=== PATIENT | male | born 1955 | race Hispanic/Latino ===

== ENCOUNTER 2019-05-29 02:23 | Inpatient (IN) | payer MEDICARE, SELFPAY ==
[2019-05-29] VITALS (12 sets, daily range): BP systolic 124–227; BP diastolic 50–101; PULSE 59–90; RESP 16–21; TEMP 36.8–37.4; O2SAT 95–100; BMI 25.3
--- NOTE | 2019-05-29 | ECHO_ITS ---
Patient Info Name: Clement Umanzor Age: 63 years : 1955 Gender: Male Ht: 68 in Wt: 167 lbs BSA: 1.92 m2 HR: 56 bpm BP: 134 / 73 mmHg Heart Rhythm: Bradycardia Technical Quality: Good Exam Date: 05/29/2019 2:16 PM Exam Location: [facility]monary Patient Status: Inpatient Admit Date: 05/29/2019 Staff Ordering Physician: Osman Odom PA-C Engine Lathe Tender: Jeremi Guzman RDCS Attending Provider: Osman Odom PA-C Referring Physician: Lei BURRELL; Exam Type: CA echo doppler color flow Study Info Indications 435.9 - TIA Complete two-dimensional, color flow and Doppler transthoracic echocardiogram is performed. Strain analysis performed. History/Risk Factors CVA x4; HTN, DM2. Summary 1. Left ventricular systolic function is mildly reduced, estimated at 40-45%. 2. The posterolateral segment is hypodynamic. 3. Otherwise normal exam. no difference compared with Sept of 2018. Left Ventricle Left ventricular chamber dimension is normal. Left ventricular systolic function is mildly reduced, estimated at 40-45%. The left ventricular diastolic function is normal. The posterolateral segment is hypodynamic. Right Ventricle Right ventricular chamber dimension is normal. Left Atria Left atrial chamber dimension is normal. Right Atria Right atrial chamber dimension is normal. Aortic Valve The aortic valve is trileaflet. Pulmonic Valve The pulmonic valve is normal. Mitral Valve The mitral valve has normal leaflets. Tricuspid Valve The tricuspid valve leaflets are normal. Pericardium/Pleural The pericardium appears normal. Aorta The aortic root size at the sinus of Valsalva is normal. Left Ventricular Outflow Tract Name Value Normal LVOT 2D LVOT Diameter 2.2 cm LVOT Doppler LVOT Peak Gradient 5 mmHg LVOT Mean Gradient 2 mmHg LVOT VTI 22 cm LVOT VTI/AV VTI Ratio 0.8 LVOT Stroke Volume 81 ml LVOT CO 4.9 l/min LVOT CI 2.5 l/min/m2 Mitral Valve Name Value Normal MV Doppler MV Decel [place] 282 cm/s2 MV PHT 66 ms MV Area (PHT) 3.3 cm2 4.0-5.0 MV Diastolic Function MV E Peak Velocity 65 cm/s MV A Peak Velocity 85 cm/s MV E/A 0.8 MV Decel Time 229 ms MV Annular TDI MV E/e' (Septal) 15.6 <=8.0
--- NOTE | ~2019-05-29 | CT_ITS ---
EXAMINATION: CT brain wo con EXAM DATE: 05/29/2019 02:54 INDICATION: Slurred speech. History of stroke. TECHNIQUE: Spiral CT of the head was performed without contrast. Axial, coronal and sagittal images were reviewed. The dose-length product (DLP) for this examination was 605.33 mGy-cm. The exposure w as tailored according to patient size, and iterative reconstruction (ASIR) was used as additional dos e reduction technique. Comparison is made to prior examination from 12/17/2018. FINDINGS: There is no acute intraparenchymal hemorrhage. No evidence of intraparenchymal brain mass lesion. No evidence of acute infarction. Please note that initial head CT has limited sensitivity f or small or acute infarctions. Punctate old bilateral thalamic lacunar infarctions. Small old right c erebellar infarction. Several small old right frontal lobe infarctions. Small old left frontal lobe a nd left parietal lobe infarctions. There is mild periventricular and subcortical hypodensity, nonspe cific but probably related to small vessel ischemic disease. There is moderate prominence of the nelson lci and ventricles related to cerebral atrophy. There is intracranial carotid arteriosclerosis. Th ere are no extra-axial collections. There is no mass effect or midline shift. The orbits are unrema rkable. Soft tissue is unremarkable. The visualized sinuses and mastoid air cells are well aerated. There is no interval change. IMPRESSION: 1. Small old infarctions unchanged. 2. Chronic age related findings. Reviewed, dictated and finalized at location B. [employer]
--- NOTE | ~2019-05-29 | MR_ITS ---
EXAMINATION: MR brain/brain stem wo/w con DATE: 05/29/2019 13:24 INDICATION: Transient ischemic attack. Slurred speech. TECHNIQUE: Magnetic resonance imaging (MRI) of the brain and brainstem was performed without and with 15 mm MultiHance intravenous contrast. Sequences included sagittal and axial T1-weighted FSE, axial diffusion-weighted FS EPI, axial T2*-weighted GRE, axial T2-weighted FLAIR Propeller, and axial T2-we ighted Propeller. Postcontrast sequences included axial and coronal T1-weighted FSE. Apparent diffusi on coefficient (ADC) maps were created. COMPARISON: Brain MRI 01/13/2019 FINDINGS: There is a punctate acute infarct in right thalamus. There are acute infarcts in left front oparietal region. There are old infarcts in right frontal lobe and right frontoparietal region. There is an old infarct in left parietal occipital region. There are old infarcts in left frontal and damian etal lobes. There are old infarcts in the cerebellum bilaterally. There are old lacunar infarcts in t he thalami. There is no intracranial hemorrhage or abnormal mass lesion. There are scattered areas of nonspecific increased T2-weighted signal intensity in the cerebral white matter. The ventricles are normal in size. The mastoid air cells are normal. The orbits are normal. There is mild mucosal thick ening in the paranasal sinuses. IMPRESSION: 1. Acute infarcts involving right thalamus and left frontoparietal region. 2. Multiple old infarcts in the brain. 3. Moderate nonspecific cerebral white matter disease, which likely represents chronic small vessel i schemic disease. Reviewed, dictated and finalized at location A. LUTION REP IMPRESSION: 1. Acute infarcts involving right thalamus and left frontoparietal region. 2. Multiple old infarcts in the brain. 3. Moderate nonspecific cerebral white matter disease, which likely represents chronic small vessel ischemic disease.
--- NOTE | ~2019-05-29 | US_ITS ---
EXAMINATION: US carotid duplex BI DATE: 05/29/2019 13:38 INDICATION: Cerebrovascular accident. TECHNIQUE: Grayscale, color Doppler, and pulsed Doppler images of the cervical carotid arteries were obtained. The degree of vessel stenosis is placed in one of the following categories: normal, <50%, 5 0-69%, >=70% but less than near-occlusion, near-occlusion, or total occlusion. Note that percent sten osis relative to normal distal artery lumen diameter is indirectly measured from velocity measurement s as described by Ari, et al. Radiology 2003; 229:340-346. COMPARISON: Ultrasound 01/13/2019 FINDINGS: RIGHT: The right common carotid artery (CCA) peak systolic velocity (PSV) is 96 cm/s. The right internal car otid artery (ICA) PSV is 85 cm/s. The right ICA end-diastolic velocity (EDV) is 21 cm/s. The right IC A/CCA PSV ratio is 0.9. Grayscale and color Doppler images yield an estimate of <50% diameter reducti on from plaque in the ICA. There is antegrade flow in the right vertebral artery. LEFT: The left CCA PSV is 91 cm/s. The left ICA PSV is 87 cm/s. The left ICA EDV is 28 cm/s. The left ICA/C CA PSV ratio is 1.0. Grayscale and color Doppler images yield an estimate of <50% diameter reduction from plaque in the ICA. There is antegrade flow in the left vertebral artery. IMPRESSION: 1. <50% stenosis in the right internal carotid artery. 2. <50% stenosis in the left internal carotid artery. Reviewed, dictated and finalized at location A. [employer]
--- NOTE | 2019-05-29 02:26 | ED.NEUROSD ---
HPI - Neuro Symptoms/Deficit General Chief Complaint: Suspected CVA Stated Complaint: POSS CVA Time Seen by Provider: 05/29/19 02:25 Source: patient, EMS and RN notes reviewed Mode of arrival: EMS Limitations: no limitations History of Present Illness HPI Narrative: Pt is a 63 y/o male who presents to the ED, via EMS from home, with c/o a suspected CVA. Pt has a hx of CVA and has had 4 in the past. Pt states that at 1:45 AM he was having some slurred speech. Per EMS, pt's last known normal was 1:45 AM. Pt's blood glucose was 445 at the scene. Pt states that he was at his brother's wake yesterday. Pt denies drinking EtOH. Pt states that he got home at around midnight and he states that he had trouble unzipping his pants and brushing his teeth. Pt reports urinary incontinence. Pt woke up his and told her about his sx. Pt also reports a mild headache, but denies weakness, vision changes, CP, and SOB. Onset (ago): hour(s) (1) Time: 01:45 Last Observed Normal: 01:45 Timing confirmed by: other (EMS) Location: speech On Anticoagulants: No Associated symptoms: headaches (mild) and other (urinary incontinence) Related Data Allergies Allergy/AdvReac Type Severity Reaction Status Date / Time penicillin G Allergy Mild Verified 01/13/19 08:46 Penicillins Allergy Unknown Verified 10/03/11 15:35 Review of Systems Review of Systems: All systems reviewed & are unremarkable except as noted in HPI and below Eyes: Eyes: Denies change in vision Cardiovascular: Cardiovascular: Denies chest pain Respiratory: Respiratory: Denies dyspnea Genitourinary: Genitourinary: Reports urinary incontinence Neurologic: Reports Abnormal speech present (slurred), Reports headache(s) (mild) and Denies weakness [facility] Past Medical History Medical History (Updated 05/29/19 @ 06:44 by Anastacia Sanchez MD) CVA (cerebrovascular accident) x4 HTN (hypertension) Type II diabetes mellitus Surgical History Surgical History (Updated 05/29/19 @ 02:38 by Parris Ohara) H/O elbow surgery History of spinal surgery Family History Family History (Updated 12/11/13 @ 07:13 by DOCTOR UNKNOWN) Sibling Family history of premature coronary heart disease Mother Family history of Parkinson's disease Social History Social History (Updated 05/29/19 @ 02:33 by Parris Ohara) Smoking packs per day: 0 Smoking cigarettes per day: 0.0 Years smoked: 51 Smoking pack-years: 0.00 Smoking status: Light tobacco smoker Tobacco type: cigarettes Additional smoking assessment comments: Pt states that he smokes more whenever he is stressed. Alcohol intake: never Substance use: never Gender identity (if verbalized by the patient): Male Spiritual care concerns: No Agree to blood products: Yes Exam Const: General: cooperative, no acute distress and alert Nutritional Appearance: well nourished Orientation/consciousness: patient oriented x3 Limitations: no limitations HENMT: Mouth: Yes lip normal and Yes moist mucous membranes Throat: other (throat normal) Eyes: Pupils: Equal, round and reactive pupils present EOM: EOMs intact bilaterally Resp: Effort & Inspection: normal respiratory effort Auscultation: clear to auscultation bilaterally Cardio: Rate: regular rate Rhythm: regular rhythm GI: GI Palp: Yes Soft to palpation and No Tenderness to palpation present (GI) Auscultation: normal bowel sounds Skin: General skin exam: normal color Neuro: General: moves all extremities Cranial nerves: Yes CN's II-XII intact bilaterally Cognition (Neuro): normal cognition Speech: Abnormal speech present slurred (slightly) Motor exam (neuro): 5/5 motor strength present throughout Sensory Exam: normal sensation Coordination: [id number] test normal Extrem: General: normal to inspection, full ROM and no clubbing, cyanosis or edema Psych: Mental Status: mental status grossly normal Affect: normal affect Attitude: cooperative C
[2019-05-29 02:33] LABS: Glucose Point of Care 386 (65-105)
--- NOTE | 2019-05-29 02:37 | ECG_ITS ---
Measurements Intervals [place] Rate: 86 P: 27 FL: 150 QRS: 3 QRSD: 98 T: -7 QT: 355 QTc: 426 Interpretive Statements SINUS RHYTHM POSSIBLE LEFT ATRIAL ENLARGEMENT NONSPECIFIC ST & T-WAVE ABNORMALITY- ANTEROLAT/INF LEADS BASELINE ARTIFACT- I, II, III, AVR, AVL, AVF BORDERLINE ECG Electronically Signed On 05-29-2019 7:03:11 MASTER CONTROL OPERATOR by Jose De Jesus Stark D.O.
[2019-05-29] MEDS: LABETALOL HCL INJ 100 MG/20 ML VIAL 10 MG IV PUSH (02:57)
[2019-05-29 03:07] LABS: Basophils Absolute Auto 0.1 K/mm3 (0.0-0.1); Basophils Percent Auto 0.5 % (0.2-1.2); Eosinophils Absolute Auto 0.1 K/mm3 (0-0.3); Eosinophils Percent Auto 0.9 % (0-4.4); Hematocrit 44.4 % (42.0-52.0); Hemoglobin 14.8 g/dL (14.0-18.0); Immature Granulocyte Absolute 0.02 K/mm3 (0.00-0.031); Immature Granulocyte Percent A 0.2 % (0-0.5); Lymphocytes Percent Auto 24.9 % (18.3-44.2); Mean Corpuscular HGB Conc 33.3 g/dl (32-36); Mean Corpuscular Volume 92.9 fl (80-100); Mean Platelet Volume 11.6 fl (7.4-10.4); Monocytes Absolute Auto 0.8 K/mm3 (0.1-0.6); Monocytes Percent Auto 7.2 % (2.6-8.5); Neutrophils Absolute Auto 7.7 K/mm3 (1.3-6.7); Neutrophils Percent Auto 66.3 % (45.5-73.1); Platelet Count Result 210 k/mm3 (150-375); Red Blood Count 4.78 M/mm3 (4.6-6.20); Red Cell Distribution Width 12.5 % (11.5-14.5); White Blood Count 11.7 K/mm3 (4.5-10.0)
[2019-05-29 03:15] LABS: Prothrombin Time 12.7 Seconds (11.1-14.7)
[2019-05-29 03:16] LABS: Partial Thromboplastin Time 27.7 SECONDS (22.3-36.8)
[2019-05-29 03:17] LABS: Ethanol < 10 mg/dL (<10)
[2019-05-29 03:22] LABS: Alanine Aminotransferase 15 U/L (4-50); Albumin Level 4.3 g/dL (3.5-5.1); Alkaline Phosphatase 96 U/L (38-126); Aspartate Amino Transferase 17 U/L (17-59); Bilirubin,Total 0.4 mg/dL (0.2-1.3); Blood Urea Nitrogen 15 mg/dL (9-20); Calcium 9.3 mg/dL (8.4-10.2); Carbon Dioxide 23 mmol/L (22-30); Chloride 100 mmol/L (98-107); Estimated Glomerular Filt Rate > 60; Glucose 391 mg/dL (75-110); Potassium 3.5 mmol/L (3.4-5.0); Sodium 136 mmol/L (137-145)
[2019-05-29 04:37] LABS: Add Urine Microscopic? YES; Appearance Urine Clear (Clear); Bilirubin Urine Negative (Negative); Blood Urine 1+ (Negative); Color Urine Straw (Yellow); Glucose Urine UA 3+ mg/dL (Negative); Ketones Urine 1+ mg/dL (Negative); Leukocyte Esterase Ur Negative LEU/UL (Negative); Mucus Urine Rare /lpf; Nitrate Urine Negative (Negative); Protein Urine 2+ mg/dL (Negative); RBC Urine 0-2 /hpf (0-2); Specific Grav Ur 1.025 (1.001-1.035); Squamous Epithelial Cell Urine Rare /hpf (Few); Urobilinogen Urine Negative mg/dL (<2.0); WBC Urine 0-3 /hpf
[2019-05-29 04:47] LABS: Barbiturate Screen Urine Negative (Negative); Benzodiazepines Screen Urine Negative (Negative)
[2019-05-29 04:49] LABS: Amphetamine Screen Urine Negative (Negative); Cocaine Screen Urine Negative (Negative); Methadone Screen Urine Negative (Negative); Opiate Screen Urine Negative (Negative); Phencyclidine Screen Urine Negative (Negative)
[2019-05-29 04:54] LABS: Cannabinoid Screen Urine Negative (Negative)
--- NOTE | 2019-05-29 06:00 | ADMGEN ---
This patient, Clement Umanzor, was admitted to 3 [facility] Surg Room 314-01. Patient/family oriented to hospital policies and general routines including ID bracelet, bed and alarms, visiting hours, pain management, procedures, bathroom and other care routines, personal items, smoking policy, room service/diet, and visiting hours. Valuables list has been completed. Information on how to activate the Rapid Response Team has been discussed. Patient/Family are encouraged to report perceived risks to care and to ask questions if they do not understand what they are told or what they should do.
--- NOTE | 2019-05-29 07:24 | PC.NURSE ---
Mihaela was contacted around 0625 and a voicemail was left regarding his home medications.
[2019-05-29 07:51] LABS: Glucose Point of Care 295 (65-105)
[2019-05-29 11:12] LABS: Glucose Point of Care 275 (65-105)
[2019-05-29] MEDS: INSULIN ASPART (*BKC) 100 UNITS/ML SUB-Q ×2 (11:46→17:18)
--- NOTE | 2019-05-29 12:42 | PM.IMHP ---
H&P: HPI History of Present Illness Chief complaint: slurred speech tia Narrative: Clement Umanzor is a 63 year old male with history of HTN, previous CVAs (x4 per patient), DMII who presented to the ER from home early this morning with complaints of incoordination and expressive aphasia. Patient states he was at his brother's wake yesterday until roughly midnight when he returned home. Shortly after, he was attempting to urinate when he was unable to unzip his pants with both hands. He was also experiencing difficulties expressing his words at which point he told his , whom advised him to come to the ER for further evaluation as they were concerned about a stroke. He denies any other symptoms such as arm/leg weakness, numbness/tingling, slurred speech, facial droop. He denies any recent illness, neck pain, illicit drug use, changes in medications, sick contacts, recent alcohol use. He has no other complaints and is wishing to go home. He states his symptoms have improved since admission, primarily his incoordination; he is having some slurred speech as stated above, but also noted to myself and nursing that he has trouble swallowing sometimes, but states this has been going on since his last CVA roughly 2 years ago. He denies f/c/ns, headaches, dizziness, lightheadedness, LOC, changes in v/h, sudden blindness, cp/palpitations, sob/cough, n/v/d/c, abd pain, melena, brbpr, dysuria, hematuria, cloudy urine, calf pain/swelling. Review of Systems Review of Systems: All systems reviewed & are unremarkable except as noted in HPI and below PMFSH Past Medical History Medical History (Updated 05/29/19 @ 13:14 by Osman Odom PA-C) CVA (cerebrovascular accident) x4 HTN (hypertension) Type II diabetes mellitus Surgical History Surgical History H/O elbow surgery History of spinal surgery History of tonsillectomy Family History Family History Sibling Family history of premature coronary heart disease Mother Family history of Parkinson's disease Social History Social History (Updated 05/29/19 @ 13:01 by Osman Odom PA-C) Social History: Patient lives with , Mihaela, whom he designates as his medical decision maker. He wishes to be a DNR; this was discussed in detail in terms of what this entails and patient confirms no CPR, intubation, or medication. His PCP is Dr. Bai. Smoking packs per day: 0.5 Smoking cigarettes per day: 10.0 Years smoked: 51 Smoking pack-years: 25.50 Smoking status: Light tobacco smoker Tobacco type: cigarettes Additional smoking assessment comments: Pt states that he smokes more whenever he is stressed. Alcohol intake: never Substance use: never Gender identity (if verbalized by the patient): Male Spiritual care concerns: No Agree to blood products: Yes Meds Home Medications and Allergies Home Medications Medication Instructions Recorded Confirmed Type aspirin 81 mg PO DAILY 05/29/19 05/29/19 History atorvastatin 10 mg PO DAILY 05/29/19 05/29/19 History carvedilol 12.5 mg PO BID 05/29/19 05/29/19 History hydralazine 10 mg PO BID 05/29/19 05/29/19 History insulin glargine [Lantus Solostar 20 unit SUBCUT HS 05/29/19 05/29/19 History U-100 Insulin] isosorbide mononitrate 60 mg PO DAILY 05/29/19 05/29/19 History levetiracetam 500 mg PO BID 05/29/19 05/29/19 History losartan 50 mg PO DAILY 05/29/19 05/29/19 History nifedipine 60 mg PO DAILY 05/29/19 05/29/19 History rivaroxaban [Xarelto] 20 mg PO DAILY 05/29/19 05/29/19 History sitagliptin-metformin [Janumet] 50 - 1,000 tablet PO BID 05/29/19 05/29/19 History Allergies Allergy/AdvReac Type Severity Reaction Status Date / Time penicillin G Allergy Mild Verified 01/13/19 08:46 Penicillins Allergy Unknown Verified 10/03/11 15:35 Vital Signs Vital Signs - 24 hr 05/29/19 02:26 05/29/19 02:30 0
--- NOTE | 2019-05-29 13:38 | PCPTNOTE ---
Attempted PT eval. Pt gone to MRI. Will try again at later time.
--- NOTE | 2019-05-29 14:47 | WPDANESPN ---
Anes - Prog Note Post-Op Date/Time: 05/29/19 14:47 Cardiovascular status: normal Respiratory status: normal Airway patency: baseline Mental status: baseline Post-Op hydration status: normal Vital Signs: Last Vital Signs Temp 98.9 F 05/29/19 06:00 Pulse 70 05/29/19 12:00 Resp 18 05/29/19 06:00 BP 134/73 05/29/19 06:00 Pulse Ox 98 05/29/19 06:00 Laboratory Tests 05/29/19 02:56 05/29/19 02:56 05/29/19 05/29/19 05/29/19 02:31 02:56 02:56 WBC 11.7 H RBC 4.78 Hgb 14.8 Hct 44.4 MCV 92.9 MCH 31.0 MCHC 33.3 RDW 12.5 Plt Count 210 MPV 11.6 H Immature Gran % (Auto) 0.2 Neut % (Auto) 66.3 Lymph % (Auto) 24.9 Nicholas % (Auto) 7.2 Eos % (Auto) 0.9 Baso % (Auto) 0.5 Lymph # (Auto) 2.90 Nicholas # (Auto) 0.8 H Eos # (Auto) 0.1 Baso # (Auto) 0.1 Abs Immat Gran (auto) 0.02 Absolute Neuts (auto) 7.7 H Absolute Nucleated RBC 0.0 Nucleated RBC % 0.0 PT 12.7 INR 1.0 APTT 27.7 Sodium Potassium Chloride Carbon Dioxide BUN Creatinine Estim Creat Clear Calc Estimated GFR Glucose POC Capillary Glucose 386 H Calcium Total Bilirubin AST ALT Alkaline Phosphatase Total Protein Albumin Urine Color Urine Appearance Urine pH Ur Specific [place] Urine Protein Urine Glucose (UA) Urine Ketones Ur Blood (Man) Urine Nitrate Urine Bilirubin Urine Urobilinogen Leukocyte Esterase Rfl Urine RBC Urine WBC Ur Squamous Epith Cells Urine Mucus Urine Opiates Screen Urine Methadone Screen Ur Barbiturates Screen Ur Phencyclidine Scrn Ur Amphetamine Screen U Benzodiazepines Scrn Urine Cocaine Screen U Cannabinoids Screen Ethyl Alcohol 05/29/19 05/29/19 05/29/19 02:56 02:56 04:14 WBC RBC Hgb Hct MCV MCH MCHC RDW Plt Count MPV Immature Gran % (Auto) Neut % (Auto) Lymph % (Auto) Nicholas % (Auto) Eos % (Auto) Baso % (Auto) Lymph # (Auto) Nicholas # (Auto) Eos # (Auto) Baso # (Auto) Abs Immat Gran (auto) Absolute Neuts (auto) Absolute Nucleated RBC Nucleated RBC % PT INR APTT Sodium 136 L Potassium 3.5 Chloride 100 Carbon Dioxide 23 BUN 15 Creatinine 0.70 Estim Creat Clear Calc Not Reportable Estimated GFR > 60 Glucose 391 H POC Capillary Glucose Calcium 9.3 Total Bilirubin 0.4 AST 17 ALT 15 Alkaline Phosphatase 96 Total Protein 7.0 Albumin 4.3 Urine Color Straw Urine Appearance Clear Urine pH 6.0 Ur Specific [place] 1.025 Urine Protein 2+ H Urine Glucose (UA) 3+ H Urine Ketones 1+ H Ur Blood (Man) 1+ H Urine Nitrate Negative Urine Bilirubin Negative Urine Urobilinogen Negative Leukocyte Esterase Rfl Negative Urine RBC 0-2 Urine WBC 0-3 Ur Squamous Epith Cells Rare Urine Mucus Rare Urine Opiates Screen Urine Methadone Screen Ur Barbiturates Screen Ur Phencyclidine Scrn Ur Amphetamine Screen U Benzodiazepines Scrn Urine Cocaine Screen U Cannabinoids Screen Ethyl Alcohol < 10 05/29/19 05/29/19 05/29/19 04:14 07:29 10:57 WBC RBC Hgb Hct MCV MCH MCHC RDW Plt Count MPV Immature Gran % (Auto) Neut % (Auto) Lymph % (Auto) Nicholas % (Auto) Eos % (Auto) Baso % (Auto) Lymph # (Auto) Nicholas # (Auto) Eos # (Auto) Baso # (Auto) Abs Immat Gran (auto) Absolute Neuts (auto) Absolute Nucleated RBC Nucleated RBC % PT INR APTT Sodium Potassium Chloride Carbon Dioxide BUN Creatinine Estim Creat Clear Calc Estimated GFR Glucose POC Capillary Glucose 295 H 275 H Calcium Total Bilirubin AST ALT Alkaline Phosphatase Total Protein Albumin
[2019-05-29 17:13] LABS: Glucose Point of Care 314 (65-105)
--- NOTE | 2019-05-29 17:15 | WPDNEURCNPN ---
Assessment and Plan Assessment and plan (1) Incoordination: Code(s): R27.9 - Unspecified lack of coordination Status: Acute (2) Expressive aphasia: Code(s): R47.01 - Aphasia Status: Acute (3) Type II diabetes mellitus: Code(s): E11.9 - Type 2 diabetes mellitus without complications Status: Acute (4) HTN (hypertension): Code(s): I10 - Essential (primary) hypertension Status: Acute (5) Slurred speech: Code(s): R47.81 - Slurred speech Status: Acute Additional Plan patient wanted to go home and is back to his baseline he is already on anticoagulant and anti-platelet therapy that needs to be continued he is a smoker and a told him to quit smoking because that is and added risk for having recurrent stroke I will be more than happy to follow him as an outpatient Consult date: 05/29/19 Time Seen: 16:00 HPI: Clement Umanzor is a 63 year old male was admitted because of dysarthria which has improved quite a bit and weakness which is also improved and he did remarkably well with the PT and OT and walked with a walker without much difficulty the patient has multiple risk factors and however on the other hand he is on anticoagulant along with the anti-platelet therapy he tells me that he did not take his Xarelto about a week prior to having this episode The H and P performed by the attending physician was reviewed and concurred with the patient in fullest possible DP detailed Review of Systems Constitutional: Constitutional: Reports no additional constitutional complaints Eyes: Eyes: Reports no additional eye complaints ENT: Reports system reviewed and no additional complaints, except as documented Cardiovascular: Cardiovascular: Reports no additional cardiovascular complaints Respiratory: Respiratory: Reports no additional respiratory complaints Gastrointestinal: Gastrointestinal: Reports no additional gastrointestinal complaints Genitourinary: Genitourinary: Reports no additional male genitourinary complaints Musculoskeletal: Musculoskeletal: Reports no additional musculoskeletal complaints Integumentary/Breasts: Skin/Breast: Reports system reviewed and no additional complaints, except as docu Neurologic: Reports system reviewed and no additional complaints, except as documented PMFSH Past Medical History Medical History CVA (cerebrovascular accident) x4 HTN (hypertension) Type II diabetes mellitus Surgical History Surgical History H/O elbow surgery History of spinal surgery History of tonsillectomy Family History Family History Sibling Family history of premature coronary heart disease Mother Family history of Parkinson's disease Social History Social History Social History: Patient lives with , Mihaela, whom he designates as his medical decision maker. He wishes to be a DNR; this was discussed in detail in terms of what this entails and patient confirms no CPR, intubation, or medication. His PCP is Dr. Bai. Smoking packs per day: 0.5 Smoking cigarettes per day: 10.0 Years smoked: 51 Smoking pack-years: 25.50 Smoking status: Light tobacco smoker Tobacco type: cigarettes Additional smoking assessment comments: Pt states that he smokes more whenever he is stressed. Alcohol intake: never Substance use: never Gender identity (if verbalized by the patient): Male Spiritual care concerns: No Agree to blood products: Yes Meds Home Medications and Allergies Home Medications Medication Instructions Recorded Confirmed Type aspirin 81 mg PO DAILY 05/29/19 05/29/19 History atorvastatin 10 mg PO DAILY 05/29/19 05/29/19 History carvedilol 12.5 mg PO BID 05/29/19 05/29/19 History hydralazine 10 mg PO BID 05/29/19
--- NOTE | 2019-05-29 17:19 | PM.DS ---
DS: Diagnosis Admitting Diagnosis Admitting Diagnosis: Aphasia Discharge Diagnosis (1) CVA (cerebrovascular accident): Code(s): I63.9 - Cerebral infarction, unspecified Status: Acute Assessment and Plan: MRI shows new acute infarcts of right thalamus and left frontoparietal regions. Dr. Curry has seen patient and stated his okay for discharge from Neurology standpoint. This afternoon, his symptoms have nearly resolved, particularly his speech and his incoordination. He did well with PT/OT/ST with no recommendations of therapy. Patient stated he stopped taking his Xarelto because his pharmacy had ran out . Discussed this in detail and he assured me he has a refill of Xarelto at home and we discussed him speaking with his pharmacy in the future prior to when he is due for a refill to ensure they have medication for him. Echo pending from today; 01/13/19 echo showed normal interatrial septum, saline contrast study negative for interatrial, and mild LV systolic dysfunction, ejection fraction 45 to 50%. Echo results on 05/29 showed mildly reduced EF estimated at 40-45% and posterolateral segment being hypodynamic with otherwise no difference compared with exam on 12/2018 Dr. Curry has been consulted and greatly appreciate input Will have patient follow up with Neurology in 6-8 weeks, no driving Follow up with pcp as well Will have him continue Xarelto and other medications as prescribed (2) Expressive aphasia: Code(s): R47.01 - Aphasia Status: Acute Assessment and Plan: This has nearly resolved by this afternoon. Likely due to CVA. Please see above a/p (3) Incoordination: Code(s): R27.9 - Unspecified lack of coordination Status: Acute Assessment and Plan: PT/OT have no recommendations for patient. See above a/p (4) Type II diabetes mellitus: Code(s): E11.9 - Type 2 diabetes mellitus without complications Status: Acute Assessment and Plan: BGL in 200s today During stay, correctional insulin, accuchecks, and hypoglycemia protocol Continue home medications. Follow up with PCP for further management (5) HTN (hypertension): Code(s): I10 - Essential (primary) hypertension Status: Acute Assessment and Plan: BP 130s sys this morning Resume home medications at discharge DS: Summary Hospital Course Reason for hospitalization: Acute CVAs involving right thalamus and left frontoparietal region Hospital Course: Patient is a 63 yo M with history of HTN, previous CVAs (x4 per patient), DMII who presented to the ER from home early on morning of 05/29 with complaints of incoordination and expressive aphasia. Patient states he was at his brother's wake on the day prior until roughly midnight when he returned home and was having difficulties in coordination with his hands when trying to urinate and having symptoms of slurred speech/expressive aphasia. He presented to the ER for furhter evaluation. While there, Head CT was unremarkable for acute CVA. He was to be admitted to rule out acute CVA. Please see H&P for further details. Of note, he later stated that he had ran out of his Xarelto for approximately 1 week as his pharmacy had told them they were unable to refill his script because they ran out . Presenting VS: BP 227/101, HR 90, RR 16, temp 98.6, sat 100% RA Presenting Pertinent labs: WBC 11.7, PT 12.7, INR 1.0, aPTT 27.7. UA showed 2+ protein, 3+ glucose, 1+ ketones, 1+ blood. CBC, CMP, tox screen, UA, otherwise unremarkable Micro: none Imagin/13 Echo Summary 1. Left ventricular systolic function is mildly reduced, estimated at 40-45%. 2. The posterolateral segment is hypodynamic. 3. Otherwise normal exam. no difference compared with Dec. 05/29 He
[2019-05-29] MEDS: RIVAROXABAN 20 MG TABLET PO (18:18)
== END 2019-05-29 18:20 | disposition home or self-care (01) | DRG 66 ==
LOC: ANHED 03:55 → ANH3MEDSUR 05:21
PROVIDERS: Physician Assistant; Admitting Provider Hospitalist; Emergency Provider Emergency Medicine; PCP Family Medicine; Visit Provider Family Medicine
DX: I63.50 Cerebral infarction due to unspecified occlusion or stenosis of unspecified cerebral artery (principal); R47.01 Aphasia; I10 Essential (primary) hypertension; Z86.73 Personal history of transient ischemic attack (TIA), and cerebral infarction without residual deficits; E11.9 Type 2 diabetes mellitus without complications; F17.210 Nicotine dependence, cigarettes, uncomplicated; R29.701 NIHSS score 1; R47.81 Slurred speech
CPT/HCPCS: 36415; 70450; 70553; 80053; 80307; 81001; 82948; 85025; 85610; 85730; 92610; 93005; 93306; 93880; 96374; 97161; 97165; 99285; A9270; A9577; J1815

== ENCOUNTER 2019-12-08 07:55 | Inpatient (IN) | payer MEDICARE, SELFPAY ==
[2019-12-08] VITALS (29 sets, daily range): BP systolic 153–183; BP diastolic 71–100; PULSE 57–74; RESP 11–18; TEMP 36.7–37.1; O2SAT 94–100; BMI 24.0
--- NOTE | 2019-12-08 | ECHO_ITS ---
Patient Info Name: Clement Umanzor Age: 63 years : 1955 Gender: Male Ht: 67 in Wt: 153 lbs BSA: 1.82 m2 HR: 64 bpm BP: 154 / 86 mmHg Technical Quality: Good Exam Date: 12/08/2019 4:01 PM Exam Location: [facility] Pulmonary Exam Room: 348 Patient Status: Inpatient Admit Date: 12/08/2019 Staff Ordering Physician: Filipe Aaron MD [employer] Buffer: Jeremi Guzman RDCS Attending Provider: Filipe Aaron MD Exam Type: CA echo doppler color flow Study Info Indications - LV DYSFUNCTION Complete two-dimensional, color flow and Doppler transthoracic echocardiogram is performed. Summary 1. Normal LV size, moderate LVH, mild LV systolic dysfunction with segmental wall motion abnormality. LVEF is about 40%. Hypokinetic anterolateral, inferolateral and mid inferior segments. Grade 1 diastolic dysfunction. Mild left atrial enlargement. Normal mitral valve, trace MR. Mild aortic valve sclerosis, no stenosis. Unable to assess RVSP due to inadequate TR jet velocity. Left Ventricle Left ventricular chamber dimension is normal. Left ventricular systolic function is mildly reduced, estimated at 40-45%. There is moderately increased left ventricular wall thickness. Left ventricular septal wall motion is normal. The left ventricular diastolic function is grade I diastolic dysfunction. Right Ventricle Right ventricular chamber dimension is normal. Right ventricular systolic function is normal. Left Atria Left atrial chamber dimension is mildly enlarged. Right Atria Right atrial chamber dimension is normal. Aortic Valve There is mild aortic valve sclerosis. There is no aortic valve stenosis. There is no aortic valve regurgitation. Pulmonic Valve The pulmonic valve is normal. There is no pulmonic valve stenosis. There is no pulmonic regurgitation. Mitral Valve The mitral valve has normal leaflets. There is trace mitral valve regurgitation. Tricuspid Valve The tricuspid valve leaflets are normal. There is no significant tricuspid valve stenosis. There is no tricuspid valve regurgitation. Pericardium/Pleural The pericardium appears normal. There is no pericardial effusion. Aorta The aortic root size at the sinus of Valsalva is normal. The prox ascending aorta size is normal. Left Ventricular Outflow Tract Name Value Normal LVOT 2D LVOT Diameter 2.2 cm LVOT Doppler LVOT Peak Gradient 3 mmHg LVOT Mean Gradient 1 mmHg LVOT VTI 18 cm LVOT VTI/AV VTI Ratio 0.8 LVOT Stroke Volume 67 ml LVOT CO 3.7 l/min LVOT CI 2.0 l/min/m2 Mitral Valve Name Value Normal MV Doppler MV Decel [place] 199 cm/s2
--- NOTE | ~2019-12-08 | XR_ITS ---
EXAMINATION: XR chest 1V portable DATE: 12/08/2019 08:39 INDICATION: Confusion TECHNIQUE: frontal view of the chest was obtained. COMPARISON: Chest radiograph dated 01/13/2019 FINDINGS: The lungs are clear with no focal airspace opacities, pulmonary edema, pleural effusion or pneumothor ax. The cardiomediastinal silhouette is normal. Left pectoral implantable surgery assistant. IMPRESSION: 1. No acute cardiopulmonary disease. Reviewed, dictated and finalized at location A.
--- NOTE | ~2019-12-08 | CT_ITS ---
EXAMINATION: CTA brain carotid DATE: 12/08/2019 08:27 INDICATION: Slurred speech. Confusion. TECHNIQUE: Computed tomographic angiography (CTA) of the head was performed without and with 100 mL O mnipaque-350 intravenous contrast. CTA of the neck was performed with intravenous contrast. Automated exposure control and iterative reconstruction technique were employed. The dose-length product was 1 770.48 mGy-cm. Maximum intensity projection and volume rendered 3D-reconstructions were created by josé antonio gerber technologist on a separate workstation. COMPARISON: Head CT 05/29/2019, brain MRI 05/29/2019 FINDINGS: HEAD CTA: There is old infarct in right cerebellum. There are scattered old infarcts involving the ri ght frontal lobe, right parietal lobe, right insula, left frontal lobe, left parietal lobe, and left occipital lobe. There are old lacunar infarcts in the bilateral thalami. There is an infarct in left occipital lobe that is new from prior imaging. There are scattered areas of low attenuation in the ce rebral white matter, likely chronic small vessel ischemic disease. There is no intracranial hemorrhag e or abnormal intracranial mass lesion. The ventricles are normal in size. The orbits are normal. The re is mild mucosal thickening in the paranasal sinuses. The mastoid air cells are normal. Left verteb ral artery is dominant. There is no significant stenosis of basilar artery or the posterior cerebral arteries. There is mild stenosis of the intracranial internal carotid arteries. There is no significa nt stenosis of the anterior or middle cerebral arteries. Anterior communicating artery is normal. The posterior communicating arteries are normal. There is no aneurysm. NECK CTA: There is mild emphysema. There is an aberrant right subclavian artery. There are no patholo gically enlarged lymph nodes. There is a stent in proximal left vertebral artery. There is plaque in the proximal internal carotid arteries. There is 0% stenosis of the proximal right internal carotid a rtery relative to normal distal artery lumen diameter (NASCET criteria). There is 0% stenosis of the proximal left internal carotid artery relative to normal distal artery lumen diameter. There is sever e cervical spondylosis. IMPRESSION: 1. Age-indeterminate infarct in left occipital lobe, new from 05/29/2019. 2. Multiple old infarcts in the brain. 3. No aneurysm or significant intracranial arterial stenosis. 4. 0% stenosis of the proximal internal carotid arteries relative to normal distal artery lumen diame ters (NASCET criteria). Reviewed, dictated and finalized at location B. IMPRESSION: 1. Age-indeterminate infarct in left occipital lobe, new from 05/29/2019. 2. Multiple old infarcts in the brain. 3. No aneurysm or significant intracranial arterial stenosis. 4. 0% stenosis of the proximal internal carotid arteries relative to normal dis conchita artery lumen diameters (NASCET criteria).
--- NOTE | ~2019-12-08 | MR_ITS ---
EXAMINATION: MR brain/brain stem wo/w con DATE: 12/08/2019 14:20 INDICATION: Stroke. Alteration of awareness. TECHNIQUE: Magnetic resonance imaging (MRI) of the brain and brainstem was performed without and with 13 mL MultiHance intravenous contrast. Sequences included sagittal and axial T1-weighted FSE, axial diffusion-weighted FS EPI, axial T2*-weighted GRE, axial T2-weighted FLAIR Propeller, and axial T2-we ighted Propeller. Postcontrast sequences included axial and coronal T1-weighted FSE. Apparent diffusi on coefficient (ADC) maps were created. COMPARISON: Brain MRI 05/29/2019, head CT 12/08/2019 FINDINGS: There are old infarcts in the cerebellum bilaterally. There are old infarcts in the right f rontal lobe, right parietal lobe, right insula, left frontal lobe, left parietal lobe, and left occip ital lobe. There are old lacunar infarcts in the bilateral basal ganglia. There are old blood product s in the left frontoparietal region and left occipital lobe. There are scattered areas of nonspecific increased T2-weighted signal intensity in the cerebral white matter and colby, likely chronic small v essel ischemic disease. There is no intracranial hemorrhage, acute infarction, or abnormal intracrani al mass lesion. The ventricles are normal in size. The orbits are normal. The mastoid air cells are n ormal. IMPRESSION: 1. Multiple old infarcts in the brain. Reviewed, dictated and finalized at location B.
--- NOTE | 2019-12-08 08:00 | ECG_ITS ---
Measurements Intervals [place] Rate: 68 P: 54 FL: 165 QRS: 53 QRSD: 101 T: -7 QT: 393 QTc: 420 Interpretive Statements SINUS RHYTHM POSSIBLE LEFT ATRIAL ENLARGEMENT BORDERLINE ST-T WAVE ABNORMALITY- ANTEROLAT/INF LEADS BASELINE ARTIFACT- I, III, AVL BORDERLINE ECG Electronically Signed On 12-08-2019 8:30:21 CDT by Jose De Jesus Stark D.O.
[2019-12-08 08:05] LABS: Glucose Point of Care 334 (65-105)
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
[2019-12-08 08:33] LABS: Basophils Absolute Auto 0.1 K/mm3 (0.0-0.1); Basophils Percent Auto 0.4 % (0.2-1.2); Eosinophils Absolute Auto 0.1 K/mm3 (0-0.3); Hematocrit 40.5 % (42.0-52.0); Hemoglobin 13.8 g/dL (14.0-18.0); Immature Granulocyte Absolute 0.05 K/mm3 (0.00-0.031); Immature Granulocyte Percent A 0.4 % (0-0.5); Lymphocytes Absolute Auto 2.25 K/mm3 (0.9-3.2); Lymphocytes Percent Auto 18.9 % (18.3-44.2); Mean Corpuscular HGB Conc 34.1 g/dl (32-36); Mean Corpuscular Hemoglobin 31.7 pg (26-34); Mean Corpuscular Volume 93.1 fl (80-100); Mean Platelet Volume 11.4 fl (7.4-10.4); Monocytes Absolute Auto 0.8 K/mm3 (0.1-0.6); Monocytes Percent Auto 6.5 % (2.6-8.5); Neutrophils Absolute Auto 8.7 K/mm3 (1.3-6.7); Neutrophils Percent Auto 72.8 % (45.5-73.1); Platelet Count Result 194 k/mm3 (150-375); Red Blood Count 4.35 M/mm3 (4.6-6.20); Red Cell Distribution Width 12.7 % (11.5-14.5); White Blood Count 11.9 K/mm3 (4.5-10.0)
[2019-12-08 08:43] LABS: INR 1.1; Prothrombin Time 13.7 Seconds (11.1-14.7)
[2019-12-08 08:44] LABS: Partial Thromboplastin Time 27.9 SECONDS (22.3-36.8)
[2019-12-08 08:48] LABS: Anion Gap 7 mmol/L (8-16); Blood Urea Nitrogen 17 mg/dL (9-20); Calcium 8.8 mg/dL (8.4-10.2); Carbon Dioxide 23 mmol/L (22-30); Chloride 103 mmol/L (98-107); Estimated CRCL calculation 89 ml/min; Estimated Glomerular Filt Rate > 60; Glucose 333 mg/dL (75-110); Potassium 3.6 mmol/L (3.4-5.0); Sodium 133 mmol/L (137-145)
[2019-12-08 09:00] LABS: Troponin I < 0.012 ng/mL (0.000-0.034)
[2019-12-08 09:50] LABS: Alanine Aminotransferase 25 U/L (4-50); Albumin Level 3.5 g/dL (3.5-5.1); Alkaline Phosphatase 92 U/L (38-126); Aspartate Amino Transferase 18 U/L (17-59); Bilirubin,Total 0.4 mg/dL (0.2-1.3)
[2019-12-08 10:09] LABS: Add Urine Microscopic? YES; Appearance Urine Clear (Clear); Bilirubin Urine Negative (Negative); Blood Urine Negative (Negative); Color Urine Straw (Yellow); Glucose Urine UA 3+ mg/dL (Negative); Ketones Urine Negative (Negative); Leukocyte Esterase Ur Negative LEU/UL (Negative); Nitrate Urine Negative (Negative); Protein Urine Negative (Negative); RBC Urine 0-2 /hpf (0-2); Specific Grav Ur 1.025 (1.001-1.035); Urobilinogen Urine Negative mg/dL (<2.0)
--- NOTE | 2019-12-08 10:50 | ADMGEN ---
This patient, Clement Umanzor, was admitted to Medical Room 348-01. Patient/family oriented to hospital policies and general routines including ID bracelet, bed and alarms, visiting hours, pain management, procedures, bathroom and other care routines, personal items, smoking policy, room service/diet, and visiting hours. Valuables list has been completed. Information on how to activate the Rapid Response Team has been discussed. Patient/Family are encouraged to report perceived risks to care and to ask questions if they do not understand what they are told or what they should do.
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
[2019-12-08 17:35] LABS: Glucose Point of Care 273 (65-105)
[2019-12-08] MEDS: metFORMIN HCL 500 MG TABLET 1000 MG PO (17:37)
[2019-12-08] MEDS: carvediloL 12.5 MG TABLET PO (17:37)
[2019-12-08] MEDS: hydrALAZINE 10 MG TABLET PO (17:38)
[2019-12-08] MEDS: INSULIN ASPART (*BKC) 100 UNITS/ML SUB-Q (17:39)
[2019-12-08] MEDS: levETIRAcetam 500 MG TABLET PO (20:39)
[2019-12-08] MEDS: INSULIN GLARGINE (*BKC) 100 UNITS/ML 20 UNITS SUB-Q (20:39)
[2019-12-08 20:42] LABS: Glucose Point of Care 242 (65-105)
[2019-12-09] VITALS (8 sets, daily range): BP systolic 110–153; BP diastolic 66–75; PULSE 60–69; RESP 16–18; TEMP 36.6–36.7; O2SAT 98–100
[2019-12-09 05:57] LABS: Hematocrit 43.6 % (42.0-52.0); Hemoglobin 14.9 g/dL (14.0-18.0); Mean Corpuscular HGB Conc 34.2 g/dl (32-36); Mean Corpuscular Volume 93.8 fl (80-100); Platelet Count Result 199 k/mm3 (150-375); Red Blood Count 4.65 M/mm3 (4.6-6.20); Red Cell Distribution Width 12.9 % (11.5-14.5); White Blood Count 8.9 K/mm3 (4.5-10.0)
[2019-12-09 06:11] LABS: Anion Gap 4 mmol/L (8-16); Blood Urea Nitrogen 16 mg/dL (9-20); Carbon Dioxide 27 mmol/L (22-30); Chloride 104 mmol/L (98-107); Cholesterol 173 mg/dL (0-200); Estimated CRCL calculation 79 ml/min; Estimated Glomerular Filt Rate > 60; Glucose 151 mg/dL (75-110); HDL Direct 42 mg/dL; Potassium 3.7 mmol/L (3.4-5.0); Sodium 135 mmol/L (137-145); Triglycerides 117 mg/dL (<150)
[2019-12-09 06:22] LABS: LDL Cholesterol Direct 93 mg/dL
[2019-12-09 06:34] LABS: Hemoglobin A1C 11.4 % (<5.7)
[2019-12-09 08:06] LABS: Glucose Point of Care 141 (65-105)
[2019-12-09] MEDS: LOSARTAN POTASSIUM 50 MG TABLET PO (09:26)
[2019-12-09] MEDS: NIFEdipine 30 MG TAB.ER.24 60 MG PO (09:26)
[2019-12-09] MEDS: carvediloL 12.5 MG TABLET PO (09:26)
[2019-12-09] MEDS: ATORVASTATIN 10 MG TABLET PO (09:26)
[2019-12-09] MEDS: RIVAROXABAN 20 MG TABLET PO (09:27)
[2019-12-09] MEDS: ISOSORBIDE MONONITRATE 60 MG TAB.ER.24H PO (09:27)
[2019-12-09] MEDS: levETIRAcetam 500 MG TABLET PO (09:27)
[2019-12-09] MEDS: hydrALAZINE 10 MG TABLET PO (09:27)
[2019-12-09] MEDS: metFORMIN HCL 500 MG TABLET 1000 MG PO (09:27)
[2019-12-09] MEDS: ASPIRIN 81 MG ENTERIC TABLET PO (09:27)
[2019-12-09 11:35] LABS: Glucose Point of Care 271 (65-105)
[2019-12-09] MEDS: INSULIN ASPART (*BKC) 100 UNITS/ML SUB-Q (11:36)
--- NOTE | 2019-12-09 14:50 | PCDIET ---
Seeing pt for MST score of 4. Pt states wt loss of 24-33lbs with poor appetite. Upon talking to pt, he states wt loss intentionally with exercise and diet. PO intake good here. UBW was 220lbs. Now 153lbs. He was confused as to why his A1c was 11.4 He was unaware of carbs in other foods outside of sugar. He does not snack and drinks water/diet soda. He does eat witt, eggs, 2 slices toast for breakfast. Lunch is a lot of pasta he says with corn or peas and some meat. We discussed limiting to 45g or 3 fistfuls and doing broccoli vs corn. He also does bread and fruit at dinner with pork loin. He avoids sugar. Edu provided on a DBCC diet, label reading, my plate meal planning method. Handouts with two weeks of meals plans and contact info provided. MST screen invalid. We will follow every seven days.
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
--- NOTE | 2019-12-09 18:20 | PM.DS ---
DS: Admitting Diagnosis Admitting Diagnosis Admitting Diagnosis: Acute ischemic stroke DS: Discharge Diagnosis Discharge Diagnosis (1) Expressive aphasia: Code(s): R47.01 - Aphasia Status: Acute Assessment and Plan: Patient with expressive aphasia at home and in the emergency room. symptoms are improved now. CT of the brain showing no acute findings but does show relatively new stroke since May. CTA of the brain showing no significant stenosis. echocardiogram no source of emboli. MR no acute infarct. Continue Lipitor, aspirin and Xarelto. Will need to have the loop recorder evaluated. discharge and follow-up (2) CVA (cerebrovascular accident): Code(s): I63.9 - Cerebral infarction, unspecified Status: Acute Assessment and Plan: Patient with history of multiple strokes. He was educated about the benefits of smoking cessation. Continue aggressive risk management. As above. (3) Cognitive deficit S/P CVA (cerebrovascular accident): Code(s): I69.319 - Unspecified symptoms and signs involving cognitive functions following cerebral infarction Status: Acute Assessment and Plan: Patient has had multiple strokes but appears to be independent of his ADLs at home. Patient was noted to have expressive aphasia at last admission but presumably this has improved according to the family. Patient again with expressive aphasia speech therapy to evaluate. As above. (4) HTN (hypertension): Code(s): I10 - Essential (primary) hypertension Status: Acute Assessment and Plan: Blood pressure elevated on admission. Patient may not have taken his home medications this morning. Resumed home medications and blood pressure well controlled while here (5) Seizure: Code(s): R56.9 - Unspecified convulsions Status: Acute Assessment and Plan: Patient has seizure-like activity last year. He was started on Keppra. No evidence of recurrence. Will continue Keppra. (6) Type II diabetes mellitus: Code(s): E11.9 - Type 2 diabetes mellitus without complications Status: Acute Assessment and Plan: Last A1c 13.2 last year and 11.4 on this admission. Resume current medications. (7) Tobacco abuse: Code(s): Z72.0 - Tobacco use Status: Acute Assessment and Plan: Patient was educated about the benefits of smoking cessation. (8) Systolic dysfunction: Code(s): I51.9 - Heart disease, unspecified Status: Acute Assessment and Plan: Last echocardiogram showing EF of 40-45% in May and repeat now 40%. No evidence of CHF. Continue losartan and Coreg. (9) DVT prophylaxis: Code(s): Z29.9 - Encounter for prophylactic measures, unspecified Status: Acute Assessment and Plan: resume Xarelto. DS: Summary Hospital Course Hospital Course: 63-year-old hypertensive type 2 diabetic on insulin previous cerebral infarct admitted with aphasia. CT scan of the brain, CTA of carotids and brain and MRI of the brain showed no acute findings. Echocardiogram ejection fraction 40% and no source of emboli. medication unchanged and patient discharged home in encouraged to stop smoking aphasia subsided in the ER Time Spent with Patient Time attestation: Total time spent providing and/or coordinating discharge services: 35 minutes Exam Narrative: Exam Narrative: condition on discharge blood pressure 110/66 pulse 62 saturating 98% on room air lungs clear CV regular rate rhythm abdomen soft nontender extremities without edema neuro speech was clear with no aphasia and no new focal deficits DS: Data Data Completed and Pending Labs on day of discharge: Labs from last 24 hours 12/09/19 12/09/19 12/09/19 11:33 08:02 05:49 WBC RBC Hgb Hct MCV MCH MCHC RDW Plt Count MPV Sodium Potassium Chlorid
== END 2019-12-09 16:30 | disposition home or self-care (01) | DRG 57 ==
LOC: ANHED 10:03 → ANH3MED 10:32
PROVIDERS: Admitting Provider Internal Medicine; Emergency Provider Emergency Medicine; PCP Family Medicine; Visit Provider Internal Medicine
DX: I69.398 Other sequelae of cerebral infarction (principal); I69.354 Hemiplegia and hemiparesis following cerebral infarction affecting left non-dominant side; R42 Dizziness and giddiness; I69.320 Aphasia following cerebral infarction; I69.319 Unspecified symptoms and signs involving cognitive functions following cerebral infarction; F17.210 Nicotine dependence, cigarettes, uncomplicated; E11.9 Type 2 diabetes mellitus without complications; G40.909 Epilepsy, unspecified, not intractable, without status epilepticus; I10 Essential (primary) hypertension; Z66 Do not resuscitate; Z79.01 Long term (current) use of anticoagulants
CPT/HCPCS: 36415; 70496; 70498; 70553; 71045; 80048; 80061; 80076; 81001; 82948; 83036; 84484; 85025; 85027; 85610; 85730; 92526; 92610; 93005; 93306; 99285; A9270; A9577; J1815; J3360; Q9967

== ENCOUNTER 2021-04-04 14:45 | Observation (INO) | payer MEDICARE, MEDICAID, SELFPAY ==
--- NOTE | ~2021-04-04 | XR_ITS ---
EXAMINATION: XR chest 2V 04/04/2021 15:19 INDICATION: Seizures. Dyspnea. PROCEDURE: 2 view chest COMPARISON: Comparison to multiple prior studies sequentially, with oldest reviewed study dated 07/12. FINDINGS: The lungs are clear. The cardiomediastinal silhouette is within normal limits. There are no pleural effusions. There is no pneumothorax suspected. IMPRESSION: 1: NO ACUTE CARDIOPULMONARY DISEASE. Reviewed, dictated and finalized at location A. BIT DESIGNER
--- NOTE | ~2021-04-04 | US_ITS ---
EXAMINATION: US carotid duplex BI DATE: 04/05/2021 15:19 INDICATION: Dizziness TECHNIQUE: Grayscale, color Doppler, and pulsed Doppler images of the cervical carotid arteries were obtained. The degree of vessel stenosis is placed in one of the following categories: normal, <50%, 5 0-69%, >=70% but less than near-occlusion, near-occlusion, or total occlusion. Note that percent sten osis relative to normal distal artery lumen diameter is indirectly measured from velocity measurement s as described by Ari, et al. Radiology 2003; 229:340-346. Notes: Normal: Peak systolic velocity <125 centimeters/sec and no plaque <50%. Peak systolic velocity <125 ( EDV <40; ICA/CCA PSV ratio <2.0; used these factors only a tandem lesions or low cardiac output or co ntralateral disease) 50-69 %: PSV 125-230 (EDV 40-100; ratio 2-4) >= 70% but less than near occlusion: PSV greater than 230 (EDV > 100; ratio> 4.0) Near Occlusion: PSV that is variable; markedly narrowed lumen Occlusion: Absent flow on color/spectral Doppler and no lumen on mendez scale. COMPARISON: None. FINDINGS: RIGHT: The right common carotid artery (CCA) peak systolic velocity (PSV) is 101 cm/s. The right internal ca rotid artery (ICA) PSV is 92 cm/s. The right ICA end-diastolic velocity (EDV) is 19 cm/s. The right I CA/CCA PSV ratio is 0.9. The external carotid artery (ECA) PSV is 101 cm/s. There is antegrade flow i n the right vertebral artery. LEFT: The left CCA PSV is 71 cm/s. The left ICA PSV is 69 cm/s. The left ICA EDV is 18 cm/s. The left ICA/C CA PSV ratio is 1.0. The ECA PSV is 78 cm/s. There is antegrade flow in the left vertebral artery. IMPRESSION: 1. Less than 50% stenosis in the right internal carotid artery by sonographic criteria. 2. Less than 50% stenosis in the left internal carotid artery by sonographic criteria. Reviewed, dictated and finalized at location A. URE FRAMES INSPECTOR IMPRESSION: 1. Less than 50% stenosis in the right internal carotid artery by sonographic wendi gomez. 2. Less than 50% stenosis in the left internal carotid artery by sonographic beena ricks.
--- NOTE | ~2021-04-04 | CT_ITS ---
EXAMINATION: CT brain wo con DATE: 04/04/2021 15:14 INDICATION: Lightheadedness. Difficulty walking. Fatigue. TECHNIQUE: Computed tomography (CT) of the head was performed without intravenous contrast. The mA wa s adjusted according to patient size. Iterative reconstruction technique was employed. The dose-lengt h product was 681.00 mGy-cm. COMPARISON: Head CT 12/08/2019 FINDINGS: There is old infarct in right cerebellum. There are old infarcts in right frontal and parie conchita lobes and left frontal, parietal, and occipital lobes. There is no intracranial hemorrhage, acute infarction, or abnormal intracranial mass lesion. There are old infarcts in the thalami bilaterally. There is an old infarct in right insula. The ventricles are normal in size. The orbits are normal. T here is mild mucosal thickening in the paranasal sinuses. The mastoid air cells are normal. IMPRESSION: 1. Multiple old infarcts in the brain. 2. Stable moderate nonspecific cerebral white matter disease, which likely represents chronic small v essel ischemic disease. Reviewed, dictated and finalized at location A. ER PRESS OPERATOR IMPRESSION: 1. Multiple old infarcts in the brain. 2. Stable moderate nonspecific cerebral white matter disease, which likely repr esents chronic small vessel ischemic disease.
--- NOTE | ~2021-04-04 | CT_ITS ---
EXAMINATION: CTA brain carotid DATE: 04/06/2021 13:34 INDICATION: Stroke. TECHNIQUE: Computed tomographic angiography (CTA) of the head was performed without and with 100 mL O mnipaque-350 intravenous contrast. CTA of the neck was performed with intravenous contrast. Automated exposure control and iterative reconstruction technique were employed. The dose-length product was 1 601.92 mGy-cm. Maximum intensity projection and volume rendered 3D-reconstructions were created by josé antonio gerber technologist on a separate workstation. COMPARISON: Head CT 04/04/2021, brain MRI 12/08/2019 FINDINGS: HEAD CTA: There is old infarct in right cerebellum. There are old infarcts in right frontal and parie conchita lobes and left frontal, parietal, and occipital lobes. There are old infarcts in the thalami bila terally. There is no intracranial hemorrhage, acute infarction, or abnormal intracranial mass lesion. There are scattered areas of low attenuation in the cerebral white matter. The ventricles are normal in size. The orbits are normal. There is mild mucosal thickening in the paranasal sinuses. The masto id air cells are normal. Left vertebral artery is dominant. There is moderate stenosis of distal left vertebral artery. There is no significant stenosis of basilar artery or the posterior cerebral arter ies. There is moderate stenosis of the intracranial internal carotid arteries. There is no significan t stenosis of the anterior or middle cerebral arteries. Anterior communicating artery and the posteri or communicating arteries are normal. There is no aneurysm. NECK CTA: There is mild emphysema. There is mild scarring at left lung apex. There are no pathologica lly enlarged lymph nodes. There is an aberrant right subclavian artery. There is a stent in proximal left vertebral artery. There is moderate stenosis of right vertebral artery origin. There is plaque i n the proximal internal carotid arteries. There is 0% stenosis of the proximal right internal carotid artery relative to normal distal artery lumen diameter (NASCET criteria). There is 0% stenosis of th e proximal left internal carotid artery relative to normal distal artery lumen diameter. There is sev ere cervical spondylosis. There is multifocal dental disease. IMPRESSION: 1. Multiple old infarcts in the brain. 2. Moderate nonspecific cerebral white matter disease, which likely represents chronic small vessel i schemic disease. 3. Moderate stenosis of the intracranial internal carotid arteries and right vertebral artery origin. 4. 0% stenosis of the proximal internal carotid arteries relative to normal distal artery lumen diame ters (NASCET criteria). Reviewed, dictated and finalized at location A. L FLOORING INSTALLER IMPRESSION: 1. Multiple old infarcts in the brain. 2. Moderate nonspecific cerebral white matter disease, which likely represents chronic small vessel ischemic disease. 3. Moderate stenosis of the intracranial internal carotid arteries and right ve rtebral artery origin. 4. 0% stenosis of the proximal internal carotid arteries relative to normal dis conchita artery lumen diameters (NASCET criteria).
[2021-04-04 14:49] VITALS: BP 156/70; PULSE 85; RESP 18; TEMP 36.5; O2SAT 100
--- NOTE | 2021-04-04 14:58 | ECG_ITS ---
Measurements Intervals Blount Rate: 75 P: 36 SC: 147 QRS: 74 QRSD: 118 T: -17 QT: 383 QTc: 430 Interpretive Statements SINUS RHYTHM CANNOT RULE OUT SEPTAL INFARCT, AGE INDETERMINATE BORDERLINE ST-T WAVE ABNORMALITY- ANTEROLAT/INF LEADS BASELINE ARTIFACT- II, III, AVR, AVF, V1, V3-V6 ABNORMAL ECG Electronically Signed On 04-04-2021 15:08:42 CHEMICAL PRODUCTION TECHNICIAN by Jose De Jesus Stark D.O.
--- NOTE | 2021-04-04 15:10 | PC.NURSE ---
EDP Jose notified of patient's s/s and presentation. Per EDBina Garcia via verbal order read-back order CT brain wo, chest pain protocol, CRP and ESR, and a UA.
[2021-04-04 15:41] VITALS: BP 149/76; PULSE 78; RESP 18; O2SAT 100
[2021-04-04 15:56] LABS: Basophils Absolute Auto 0.1 K/mm3 (0.0-0.1); Basophils Percent Auto 0.7 % (0.2-1.2); Eosinophils Absolute Auto 0.1 K/mm3 (0-0.3); Eosinophils Percent Auto 1.1 % (0-4.4); Hematocrit 42.1 % (42.0-52.0); Hemoglobin 14.5 g/dL (14.0-18.0); Immature Granulocyte Absolute 0.03 K/mm3 (0.00-0.031); Immature Granulocyte Percent A 0.3 % (0-0.5); Lymphocytes Absolute Auto 3.19 K/mm3 (0.9-3.2); Mean Corpuscular HGB Conc 34.4 g/dl (32-36); Mean Corpuscular Volume 92.9 fl (80-100); Mean Platelet Volume 10.6 fl (7.4-10.4); Monocytes Absolute Auto 0.6 K/mm3 (0.1-0.6); Monocytes Percent Auto 6.2 % (2.6-8.5); Neutrophils Absolute Auto 6.2 K/mm3 (1.3-6.7); Neutrophils Percent Auto 60.7 % (45.5-73.1); Platelet Count Result 201 k/mm3 (150-375); Red Blood Count 4.53 M/mm3 (4.6-6.20); Red Cell Distribution Width 12.6 % (11.5-14.5); White Blood Count 10.3 K/mm3 (4.5-10.0)
[2021-04-04 16:07] LABS: Alanine Aminotransferase 16 U/L (4-50); Alkaline Phosphatase 117 U/L (38-126); Anion Gap 5 mmol/L (8-16); Aspartate Amino Transferase 16 U/L (17-59); Bilirubin,Total 0.4 mg/dL (0.2-1.3); Blood Urea Nitrogen 16 mg/dL (9-20); Calcium 9.3 mg/dL (8.4-10.2); Carbon Dioxide 25 mmol/L (22-30); Chloride 102 mmol/L (98-107); Estimated CRCL calculation 77 ml/min; Estimated Glomerular Filt Rate > 60; Glucose 340 mg/dL (65-110); Lipase 101 U/L (23-300); Potassium 3.5 mmol/L (3.4-5.0); Sodium 132 mmol/L (137-145)
[2021-04-04 16:12] LABS: CRP < 0.5 mg/dL (<1.0)
[2021-04-04 16:19] LABS: Troponin I < 0.012 ng/mL (0.000-0.034)
[2021-04-04 16:33] LABS: Erythrocyte Sedimentation Rate 17 mm/hr (0-20)
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
[2021-04-04 16:46] LABS: Add Urine Microscopic? YES; Appearance Urine Clear (Clear); Bilirubin Urine Negative (Negative); Blood Urine Negative (Negative); Color Urine Yellow (Yellow); Glucose Urine UA 3+ mg/dL (Negative); Ketones Urine Trace mg/dL (Negative); Leukocyte Esterase Ur Negative LEU/UL (Negative); Mucus Urine Rare /lpf; Nitrate Urine Negative (Negative); Protein Urine 2+ mg/dL (Negative); RBC Urine 0-2 /hpf (0-2); Specific Grav Ur 1.027 (1.001-1.035); Urobilinogen Urine Negative mg/dL (<2.0); WBC Urine 0-3 /hpf
[2021-04-04 17:13] VITALS: BP 142/77; PULSE 70; RESP 18; O2SAT 99
[2021-04-04 17:30] LABS: Prothrombin Time 12.9 Seconds (11.1-14.7)
[2021-04-04 17:31] LABS: Partial Thromboplastin Time 28.2 SECONDS (22.3-36.8)
[2021-04-04 18:56] VITALS: BP 155/70; PULSE 84; RESP 18; O2SAT 100
[2021-04-04 19:10] VITALS: BP 153/72; PULSE 76; RESP 16; TEMP 36.7; O2SAT 97; BMI 23.2
--- NOTE | 2021-04-04 22:29 | ADMGEN ---
This patient, Clement Umanzor, was admitted to [facility] Surg Room 315-01. Patient/family oriented to hospital policies and general routines including ID bracelet, bed and alarms, visiting hours, pain management, procedures, bathroom and other care routines, personal items, smoking policy, room service/diet, and visiting hours. Information on how to activate the Rapid Response Team has been discussed. Patient/Family are encouraged to report perceived risks to care and to ask questions if they do not understand what they are told or what they should do.
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
[2021-04-05] VITALS (9 sets, daily range): BP systolic 148–175; BP diastolic 72–90; PULSE 63–95; RESP 14–16; TEMP 36.6–36.9; O2SAT 98–100
--- NOTE | 2021-04-05 06:00 | ECHO_ITS ---
Patient Info Name: Clement Umanzor Age: 65 years : 1955 Gender: Male Ht: 68 in Wt: 153 lbs BSA: 1.83 m2 HR: 69 bpm BP: 153 / 72 mmHg Technical Quality: Fair Exam Date: 04/05/2021 10:14 AM Exam Location: [facility] Patient Status: Outpatient Admit Date: 04/04/2021 Staff Ordering Physician: Kirsty Sotomayor MD Field Service Manager: Irasema Ledesma RDCS Attending Provider: Roxanne Billingsley PA-C Referring Physician: Bran NUNO; Exam Type: CA echo doppler color flow Study Info Indications R42 - Dizziness and giddiness Complete two-dimensional, color flow and Doppler transthoracic echocardiogram is performed. Summary 1. Complete two-dimensional, color flow and Doppler transthoracic echocardiogram is performed. 2. Left ventricular chamber dimension is mildly enlarged. 3. Left ventricular systolic function is moderately reduced, estimated at 40-45%. 4. Posterior wall and lateral wall are hypokinetic. 5. The left ventricular diastolic function is grade I diastolic dysfunction. 6. E/e' 10 is mildly elevated. 7. Global longitudinal strain is abnormal at -9.8%. 8. Left atrial chamber dimension is mildly enlarged. 9. The mitral valve has moderately calcified annulus. Left Ventricle E/e' 10 is mildly elevated. Global longitudinal strain is abnormal at -9.8%. Posterior wall and lateral wall are hypokinetic. Left ventricular chamber dimension is mildly enlarged. Left ventricular systolic function is moderately reduced, estimated at 40-45%. The left ventricular diastolic function is grade I diastolic dysfunction. Right Ventricle Right ventricular chamber dimension is normal. Right ventricular systolic function is normal. Left Atria Left atrial chamber dimension is mildly enlarged. Right Atria Right atrial chamber dimension is normal. Aortic Valve The aortic valve is trileaflet. There is no aortic valve stenosis. There is no aortic valve regurgitation. Pulmonic Valve There is no pulmonic regurgitation. Mitral Valve The mitral valve has moderately calcified annulus. There is no mitral valve stenosis. There is no mitral valve regurgitation. Tricuspid Valve There is no tricuspid valve regurgitation. Pericardium/Pleural There is no pericardial effusion. Inferior Vena Cava Normal inferior vena cava with >50% collapse upon inspiration consistent with normal right atrial pressure, 5 mmHg. Aorta The aortic root size at the sinus of Valsalva is normal. Left Ventricular Outflow Tract Name Value Normal LVOT 2D LVOT Diameter 2.0 cm LVOT Doppler LVOT Peak Gradient 3 mmHg LVOT Mean Gradient 2 mmHg LVOT VTI 17 cm LVOT VTI/AV VTI Ratio 0.9 LVOT Stroke Volume 54 ml LVOT CO 3.9 l/min LVOT CI 2.1 l/min/m2 Pulmonic Valve Name Value Normal
[2021-04-05 06:02] LABS: Basophils Absolute Auto 0.1 K/mm3 (0.0-0.1); Basophils Percent Auto 0.5 % (0.2-1.2); Eosinophils Absolute Auto 0.2 K/mm3 (0-0.3); Eosinophils Percent Auto 1.6 % (0-4.4); Hematocrit 42.7 % (42.0-52.0); Hemoglobin 14.6 g/dL (14.0-18.0); Immature Granulocyte Absolute 0.03 K/mm3 (0.00-0.031); Immature Granulocyte Percent A 0.3 % (0-0.5); Lymphocytes Absolute Auto 2.83 K/mm3 (0.9-3.2); Lymphocytes Percent Auto 30.2 % (18.3-44.2); Mean Corpuscular HGB Conc 34.2 g/dl (32-36); Mean Corpuscular Hemoglobin 32.1 pg (26-34); Mean Corpuscular Volume 93.8 fl (80-100); Mean Platelet Volume 10.8 fl (7.4-10.4); Monocytes Absolute Auto 0.7 K/mm3 (0.1-0.6); Monocytes Percent Auto 7.1 % (2.6-8.5); Neutrophils Absolute Auto 5.7 K/mm3 (1.3-6.7); Neutrophils Percent Auto 60.3 % (45.5-73.1); Platelet Count Result 210 k/mm3 (150-375); Red Blood Count 4.55 M/mm3 (4.6-6.20); Red Cell Distribution Width 12.5 % (11.5-14.5); White Blood Count 9.4 K/mm3 (4.5-10.0)
[2021-04-05 06:23] LABS: Lactic Acid Reflex 0.8 mmol/L (0.7-2.1)
[2021-04-05 06:35] LABS: Alanine Aminotransferase 15 U/L (4-50); Albumin Level 3.8 g/dL (3.5-5.1); Alkaline Phosphatase 123 U/L (38-126); Anion Gap 5 mmol/L (8-16); Aspartate Amino Transferase 14 U/L (17-59); Bilirubin,Total 0.5 mg/dL (0.2-1.3); Blood Urea Nitrogen 14 mg/dL (9-20); Calcium 9.1 mg/dL (8.4-10.2); Carbon Dioxide 25 mmol/L (22-30); Chloride 105 mmol/L (98-107); Estimated CRCL calculation 80 ml/min; Estimated Glomerular Filt Rate > 60; Glucose 336 mg/dL (65-110); Magnesium 1.8 mg/dL (1.6-2.3); Phosphorus 3.6 mg/dL (2.5-4.5); Potassium 3.6 mmol/L (3.4-5.0); Sodium 135 mmol/L (137-145)
[2021-04-05 07:44] LABS: Hemoglobin A1C 12.5 % (<5.7)
[2021-04-05] MEDS: INSULIN ASPART (*BKC) 100 UNITS/ML SUB-Q ×4 (08:31→16:57)
[2021-04-05] MEDS: hydrALAZINE 10 MG TABLET PO ×2 (08:32→22:07)
[2021-04-05] MEDS: NIFEdipine 30 MG TAB.ER.24 60 MG PO (08:32)
[2021-04-05] MEDS: LOSARTAN POTASSIUM 50 MG TABLET PO (08:32)
[2021-04-05] MEDS: ATORVASTATIN 10 MG TABLET PO (08:32)
[2021-04-05] MEDS: carvediloL 12.5 MG TABLET PO ×2 (08:32→22:06)
[2021-04-05] MEDS: ASPIRIN 81 MG ENTERIC TABLET PO (08:32)
[2021-04-05 08:37] LABS: Glucose Point of Care 310 mg/dl (65-105)
[2021-04-05 09:14] LABS: Cholesterol 137 mg/dL (0-200); HDL Direct 47 mg/dL; Triglycerides 90 mg/dL (<150)
[2021-04-05 09:24] LABS: LDL Cholesterol Direct 61 mg/dL
[2021-04-05 11:53] LABS: Glucose Point of Care 428 mg/dl (65-105)
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
--- NOTE | 2021-04-05 15:46 | PM.IMPN ---
Progress Note: A&P Assessment and Plan (1) Dizziness: Code(s): R42 - Dizziness and giddiness Status: Acute Assessment and Plan: Patient is a 65-year-old man with a history of 3x CVA, hypertension, seizure, systolic dysfunction, diabetes type 2, vertebral artery disease, who presented to the emergency room with dizziness/ off-balance with walking that began Sunday evening and became worse on Sunday which brought him to the emergency room for further evaluation. Initial vitals showed elevated blood pressure 156/70, heart rate 85 beats per minute, normal oxygenation on room air, afebrile. Initial labs showed slight leukocytosis at 10,300, normal H&H, normal differential, normal coag panel, slight hyponatremia at 132, normal renal function, normal LFTs, normal troponin, normal CRP, normal lipase. Glucose was elevated at 341. Urinalysis showed 3+ glucose and 2+ protein otherwise no acute signs of infection. CT head showed multiple old infarcts in the brain, stable moderate cerebral white matter disease. Chest x-ray showed no acute cardiopulmonary disease. Patient was admitted hospital for further stroke rule out, PT/OT therapy and further monitoring and treatment of his hyperglycemia. Patient states he has had diabetes for over 10 years and was on insulin about 8 years ago but was taken off by his PCP. He does not check his glucose regularly because he does not have the correct test strips for his glucometer. Carotid Doppler showed less than 50% stenosis bilateral carotid arteries. Cholesterol showed well-controlled LDL at 61, normal total cholesterol and triglycerides. Pending echocardiogram results Pending MRI results because the patient has some type of metal in his brain and needs clearance from the facility who placed it. I told the patient if we cannot get an MRI tomorrow then we will repeat his CT of his head since it would be 48 hours to rule out acute stroke causing his symptoms. Patient is feeling much better at this time and I really feel that his symptoms were all due to hyperglycemia. At this time we are working on better glucose control and starting him on insulin, Lantus 10 units HS, 3 units of NovoLog with meals and sliding scale. Hopefully we can better control his glucose and if the symptoms are better and workup unremarkable possibly discharge tomorrow. Neurology was consulted and evaluated the patient Continue monitoring. (2) Gait instability: Code(s): R26.81 - Unsteadiness on feet Status: Acute Assessment and Plan: PT and OT evaluation greatly be appreciated. Patient has residual weakness the left upper extremity. Patient is being admitted for stroke workup and Neurology consult. (3) Cerebrovascular accident: Code(s): I63.9 - Cerebral infarction, unspecified Status: Acute Assessment and Plan: Rule out acute CVA The patient has had multiple strokes. He is on Xarelto on aspirin. Continue with Lipitor. (4) Seizure: Code(s): R56.9 - Unspecified convulsions Status: Acute Assessment and Plan: I do not see any current medication for seizures. (5) Essential hypertension: Code(s): I10 - Essential (primary) hypertension Status: Acute Assessment and Plan: BP 175/90 this morning before medications given. This afternoon recheck 148/75. Continue with Coreg, losartan and hydralazine. Consider increasing medication if BP still elevated vs follow up with PCP and check BP BID at home. (6) Tobacco abuse: Code(s): Z72.0 - Tobacco use Status: Acute Assessment and Plan: Smoking cessation has been discussed for approximately 3 minutes. States he is not interested in quitting at this time. (7) Incoordination: Code(s): R27.9 - Unspecified lack of coordination Status: Acute Assessment and Plan: PT OT evaluation. (8) Type II diabetes mellitus: Code(s): E11.9 - Type 2 d
[2021-04-05 16:48] LABS: Glucose Point of Care 158 mg/dl (65-105)
[2021-04-05] MEDS: INSULIN GLARGINE (*BKC) 100 UNITS/ML 10 UNITS SUB-Q (22:08)
[2021-04-05] MEDS: RIVAROXABAN 20 MG TABLET PO (22:08)
[2021-04-05 23:21] LABS: Glucose Point of Care 257 mg/dl (65-105)
[2021-04-06] VITALS: PULSE 82
[2021-04-06 04:00] VITALS: PULSE 82
[2021-04-06 06:00] VITALS: BP 145/76; PULSE 72; RESP 16; TEMP 36.8; O2SAT 99
[2021-04-06 07:00] LABS: Anion Gap 5 mmol/L (8-16); Blood Urea Nitrogen 15 mg/dL (9-20); Carbon Dioxide 27 mmol/L (22-30); Chloride 104 mmol/L (98-107); Estimated CRCL calculation 80 ml/min; Estimated Glomerular Filt Rate > 60; Glucose 207 mg/dL (65-110); Potassium 3.4 mmol/L (3.4-5.0); Sodium 136 mmol/L (137-145)
[2021-04-06 08:01] LABS: Glucose Point of Care 208 mg/dl (65-105)
[2021-04-06] MEDS: INSULIN ASPART (*BKC) 100 UNITS/ML SUB-Q ×5 (09:12→17:24)
[2021-04-06 09:13] VITALS: PULSE 72
[2021-04-06] MEDS: carvediloL 12.5 MG TABLET PO (09:13)
[2021-04-06] MEDS: hydrALAZINE 10 MG TABLET PO (09:13)
[2021-04-06] MEDS: NIFEdipine 30 MG TAB.ER.24 60 MG PO (09:14)
[2021-04-06] MEDS: ATORVASTATIN 10 MG TABLET PO (09:14)
[2021-04-06] MEDS: LOSARTAN POTASSIUM 50 MG TABLET PO (09:14)
[2021-04-06] MEDS: ASPIRIN 81 MG ENTERIC TABLET PO (09:14)
[2021-04-06 11:59] LABS: Glucose Point of Care 159 mg/dl (65-105)
[2021-04-06 14:00] VITALS: BP 133/67; PULSE 65; RESP 16; TEMP 36.4; O2SAT 100
--- NOTE | 2021-04-06 14:54 | PM.DS ---
DS: Admitting Diagnosis Discharge Date 04/06/21 Admitting Diagnosis Difficulty walking DS: Discharge Diagnosis Discharge Diagnosis (1) Dizziness: Code(s): R42 - Dizziness and giddiness Status: Acute Assessment and Plan: Patient is a 65-year-old man with a history of 3x CVA, hypertension, seizure, systolic dysfunction, diabetes type 2, vertebral artery disease, who presented to the emergency room with dizziness/ off-balance with walking that began Sunday evening and became worse on Sunday which brought him to the emergency room for further evaluation. Initial vitals showed elevated blood pressure 156/70, heart rate 85 beats per minute, normal oxygenation on room air, afebrile. Initial labs showed slight leukocytosis at 10,300, normal H&H, normal differential, normal coag panel, slight hyponatremia at 132, normal renal function, normal LFTs, normal troponin, normal CRP, normal lipase. Glucose was elevated at 341. Urinalysis showed 3+ glucose and 2+ protein otherwise no acute signs of infection. CT head showed multiple old infarcts in the brain, stable moderate cerebral white matter disease. Chest x-ray showed no acute cardiopulmonary disease. Patient was admitted hospital for further stroke rule out, PT/OT therapy and further monitoring and treatment of his hyperglycemia. Patient states he has had diabetes for over 10 years and was on insulin about 8 years ago but was taken off by his PCP. He does not check his glucose regularly because he does not have the correct test strips for his glucometer. Carotid Doppler showed less than 50% stenosis bilateral carotid arteries. Cholesterol showed well-controlled LDL at 61, normal total cholesterol and triglycerides. Echocardiogram showed Left ventricular chamber dimension is mildly enlarged. Left ventricular systolic function is moderately reduced, estimated at 40-45%. Posterior wall and lateral wall are hypokinetic. The left ventricular diastolic function is grade I diastolic dysfunction. E/e' 10 is mildly elevated. Global longitudinal strain is abnormal at -9.8%. Left atrial chamber dimension is mildly enlarged. The mitral valve has moderately calcified annulus. Patient is feeling much better at this time and I really feel that his symptoms were all due to hyperglycemia. At this time we are working on better glucose control and starting him on insulin, Lantus 10 units HS, 3 units of NovoLog with meals and sliding scale. Glucoses are better controlled. We ruled out acute stroke. Patient feels comfortable with walking with a walker due to some off balance numbness. Told him to purchase a walker before going home. He otherwise did well with therapy walked 150 ft in the colon without a walker with no assistance. Neurologist evaluated the patient and felt at this time there was no need for further changes. Continue aspirin and Xarelto. Instruction to follow with PCP in 1 week. Follow up with Neurology in 4 weeks. Return to ER warnings given. Patient understands agrees the plan all questions answered. (2) Gait instability: Code(s): R26.81 - Unsteadiness on feet Status: Acute Assessment and Plan: Did well with PT OT. He states he feels better with walking with a walker. Told to purchase home before going home. (3) Cerebrovascular accident: Code(s): I63.9 - Cerebral infarction, unspecified Status: Acute Assessment and Plan: No new stroke. Multiple strokes. Cholesterol well controlled. Continue Xarelto and aspirin. (4) Seizure: Code(s): R56.9 - Unspecified convulsions Status: Acute Assessment and Plan: I do not see any current medication for seizures. (5) Essential hypertension: Code(s): I10 - Essential (primary) hypertension Status: Acute Assessment and Plan: BP 133/67 this afternoon after medications given. Continue with Coreg, losartan and hydralazine. Consider increasing medicatio
[2021-04-06 17:00] LABS: Glucose Point of Care 259 mg/dl (65-105)
== END 2021-04-06 17:35 | disposition home or self-care (01) ==
LOC: ANHED 16:08 → ANH3MEDSUR 18:10
PROVIDERS: Emergency Medicine; Nurse Practitioner; Physician Assistant; Admitting Provider Family Medicine; Emergency Provider Emergency Medicine; PCP Family Medicine; Visit Provider Internal Medicine
DX: E11.65 Type 2 diabetes mellitus with hyperglycemia (principal); I69.354 Hemiplegia and hemiparesis following cerebral infarction affecting left non-dominant side; R42 Dizziness and giddiness; E11.42 Type 2 diabetes mellitus with diabetic polyneuropathy; F17.210 Nicotine dependence, cigarettes, uncomplicated; G40.909 Epilepsy, unspecified, not intractable, without status epilepticus; I10 Essential (primary) hypertension; R26.81 Unsteadiness on feet; Z79.01 Long term (current) use of anticoagulants; Z79.84 Long term (current) use of oral hypoglycemic drugs; Z95.828 Presence of other vascular implants and grafts; Z79.82 Long term (current) use of aspirin
CPT/HCPCS: 36415; 70450; 70496; 70498; 71046; 80048; 80053; 80061; 81001; 82948; 83036; 83605; 83690; 83735; 84100; 84443; 84484; 85025; 85610; 85652; 85730; 86140; 93005; 93306; 93880; 97161; 97165; 99285; A9270; G0378; J1815; Q9967

== ENCOUNTER 2021-06-23 10:57 | Outpatient (RCR) | payer MEDICARE, SELFPAY ==
[2021-06-23 10:59] VITALS: BMI 23.3
[2021-06-23 11:00] VITALS: BMI 23.3
== END 2021-08-02 11:37 | disposition home or self-care (01) ==
LOC: ANHDMC 10:57
PROVIDERS: PCP Family Medicine; Visit Provider Family Medicine
DX: E11.65 Type 2 diabetes mellitus with hyperglycemia (principal); Z71.3 Dietary counseling and surveillance
CPT/HCPCS: 97802

== ENCOUNTER 2022-06-28 16:04 | Observation (INO) | payer MEDICARE, MEDICAID, SELFPAY ==
[2022-06-28] VITALS (17 sets, daily range): BP systolic 179–222; BP diastolic 83–116; PULSE 74–86; RESP 13–22; TEMP 36.4–36.7; O2SAT 99–100; BMI 20.7
--- NOTE | ~2022-06-28 | XR_ITS ---
EXAMINATION: XR chest 1V portable DATE: 06/28/2022 16:50 INDICATION: Cerebrovascular accident. TECHNIQUE: A single frontal view of the chest was obtained. COMPARISON: Chest 2 views 04/04/2021 FINDINGS: The chest demonstrates clear lungs without pneumonia, pleural effusion, or pneumothorax. Th e heart size is normal. There is an electronic implant in left anterior chest wall. IMPRESSION: 1. No acute cardiopulmonary disease. Reviewed, dictated and finalized at location A.
--- NOTE | ~2022-06-28 | XR_ITS ---
Right ankle Technique: AP, oblique, and lateral views were obtained. Clinical History: Swelling Findings: No acute fracture or dislocation is seen. Osseous alignment is anatomic. Ankle mortise and other visualized joint spaces are preserved. Soft tissues are otherwise unremarkable. Impression: Unremarkable right ankle. Reviewed, dictated and finalized at location . Impression: Unremarkable right ankle.
--- NOTE | ~2022-06-28 | CT_ITS ---
EXAMINATION: CT brain wo con DATE: 06/28/2022 16:18 INDICATION: Right facial weakness. TECHNIQUE: Computed tomography (CT) of the head was performed without intravenous contrast. The mA wa s adjusted according to patient size. Iterative reconstruction technique was employed. The dose-lengt h product was 605.33 mGy-cm. COMPARISON: Head CT 04/06/2021 FINDINGS: There are old infarcts involving the right cerebellum, left occipital lobe, bilateral thala mi, bilateral basal ganglia, bilateral parietal lobes, right insula, and bilateral frontal lobes. The re is no intracranial hemorrhage, acute infarction, or abnormal intracranial mass lesion. There are s cattered areas of low attenuation in the cerebral white matter. The ventricles are normal in size. Th e orbits are normal. There is mild mucosal thickening in the paranasal sinuses. The mastoid air cells are normal. IMPRESSION: 1. Multiple old infarcts in the brain. 2. Extensive nonspecific cerebral white matter disease, which likely represents chronic small vessel ischemic disease. 3. I discussed this case with Dr. Velasquez. Reviewed, dictated and finalized at location A.
--- NOTE | 2022-06-28 16:08 | ECG_ITS ---
Measurements Intervals Watson Rate: 81 P: 46 VA: 165 QRS: 56 QRSD: 101 T: -89 QT: 377 QTc: 440 Interpretive Statements SINUS RHYTHM POSSIBLE LEFT ATRIAL ENLARGEMENT ST-T WAVE ABNORMALITY IN INF/LAT LEADS- CONSIDER ISCHEMIA BASELINE ARTIFACT- I, III, AVR, AVL, AVF, V4 ABNORMAL ECG COMPARED TO ECG 04/04/2021 15:06:52 NO SIGNIFICANT CHANGES Electronically Signed On 06-28-2022 20:20:31 CDT by Jose De Jesus Stark D.O.
[2022-06-28 16:14] LABS: Glucose Point of Care 500 mg/dl (65-105)
[2022-06-28 16:34] LABS: Basophils Absolute Auto 0.1 K/mm3 (0.0-0.1); Basophils Percent Auto 0.6 % (0.2-1.2); Eosinophils Absolute Auto 0.1 K/mm3 (0-0.3); Eosinophils Percent Auto 0.7 % (0-4.4); Hematocrit 44.9 % (42.0-52.0); Hemoglobin 15.1 g/dL (14.0-18.0); Immature Granulocyte Absolute 0.03 K/mm3 (0.00-0.031); Immature Granulocyte Percent A 0.4 % (0-0.5); Lymphocytes Absolute Auto 2.01 K/mm3 (0.9-3.2); Lymphocytes Percent Auto 23.9 % (18.3-44.2); Mean Corpuscular HGB Conc 33.6 g/dl (32-36); Mean Corpuscular Hemoglobin 31.8 pg (26-34); Mean Corpuscular Volume 94.5 fl (80-100); Mean Platelet Volume 10.9 fl (7.4-10.4); Monocytes Absolute Auto 0.6 K/mm3 (0.1-0.6); Monocytes Percent Auto 7.1 % (2.6-8.5); Neutrophils Absolute Auto 5.7 K/mm3 (1.3-6.7); Neutrophils Percent Auto 67.3 % (45.5-73.1); Platelet Count Result 206 k/mm3 (150-375); Red Blood Count 4.75 M/mm3 (4.6-6.20); Red Cell Distribution Width 13.2 % (11.5-14.5); White Blood Count 8.4 K/mm3 (4.5-10.0)
[2022-06-28 16:42] LABS: Alanine Aminotransferase 20 U/L (6-50); Alkaline Phosphatase 125 U/L (38-126); Anion Gap 4 mmol/L (8-16); Aspartate Amino Transferase 17 U/L (17-59); Bilirubin,Total 0.5 mg/dL (0.2-1.3); Blood Urea Nitrogen 15 mg/dL (9-20); Calcium 8.8 mg/dL (8.4-10.2); Carbon Dioxide 29 mmol/L (22-30); Chloride 99 mmol/L (98-107); Estimated CRCL calculation 89 ml/min; Estimated Glomerular Filt Rate > 60; Glucose 492 mg/dL (65-110); Potassium 3.6 mmol/L (3.4-5.0); Sodium 132 mmol/L (137-145)
[2022-06-28 16:48] LABS: Prothrombin Time 12.6 Seconds (11.1-14.7)
[2022-06-28 16:49] LABS: Partial Thromboplastin Time 28.5 SECONDS (22.3-36.8)
[2022-06-28 16:54] LABS: Troponin I < 0.012 ng/mL (0.000-0.034)
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
--- NOTE | 2022-06-28 17:17 | PM.IMHP ---
H&P: HPI History of Present Illness Date/Time: 06/28/22 17:17 Chief Complaint: Suspected CVA Narrative: This is a 66-year-old male patient with a history of diabetes, hypertension and previous CVAs. The patient was having difficulty speaking today. The patient has not been taking his blood pressure medications are is diabetic medication. The family noticed that his speech was somewhat slurred today. I asked the patient why he did not want to take his medicine in the patient stated that he does not want to take his medications today and that he would like to . Patient's blood pressure was 204/116 he was given hydralazine and his blood pressure came down to 179/87. His sodium was 132. His blood sugars were 492 and is now down to 223 he was given NovoLog in the emergency room. Chest x-ray was read as no acute cardiopulmonary disease. Head CT was read as the followingMultiple old infarcts in the brain. 2. Extensive nonspecific cerebral white matter disease, which likely represents chronic small vessel ischemic disease. 3. I discussed this case with Dr. Velasquez. Neurology has been consulted. The patient stated that he had new slippers on today and slid hurting his right ankle. It is now swollen the patient is being admitted for observation status on the date of service of 06/28/2022 Review of Systems Review of Systems: All systems reviewed & are unremarkable except as noted in HPI and below Constitutional: Constitutional: Reports as per HPI and Reports no additional constitutional complaints Eyes: Eyes: Reports as per HPI and Reports no additional eye complaints ENT: Reports system reviewed and no additional complaints, except as documented and Reports Normal hearing present Cardiovascular: Cardiovascular: Reports no additional cardiovascular complaints Respiratory: Respiratory: Reports no additional respiratory complaints and Reports no additional respiratory complaints Gastrointestinal: Gastrointestinal: Reports as per HPI and Reports no additional gastrointestinal complaints Musculoskeletal: Musculoskeletal: Reports no additional musculoskeletal complaints Integumentary/Breasts: Skin/Breast: Reports system reviewed and no additional complaints, except as docu and Reports as per HPI Neurologic: Reports system reviewed and no additional complaints, except as documented, Reports as per HPI and Reports Normal hearing present Psychiatric: Psychiatric: Reports no additional psychiatric complaints and Reports as per HPI Endocrine: Endocrine: Reports no additional endocrine complaints Hematologic/Lymphatic: Hematologic/Lymphatic: Reports no additional hematologic/lymphatic complaints Allergic/Immunologic: Allergic/Immunologic: Reports no additional allergic/immunologic complaints [facility] Past Medical History Medical History Acute neck sprain Atherosclerosis of [place] coronary artery of [place] heart without angina pectoris Benign prostatic hyperplasia without lower urinary tract symptoms Cerebrovascular accident 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
[2022-06-28] MEDS: INSULIN ASPART (*BKC) 100 UNITS/ML 10 UNITS SUB-Q (17:24)
[2022-06-28] MEDS: LACTATED RINGERS 1,000 ML 999 ML IV CONT (17:25)
[2022-06-28] MEDS: hydrALAZINE HCL 20 MG/ML VIAL 10 MG IV PUSH (17:29)
[2022-06-28 18:15] LABS: Glucose Point of Care 368 mg/dl (65-105)
[2022-06-28 18:18] LABS: Appearance Urine Clear (Clear); Bacteria Urine None Seen /hpf; Bilirubin Urine Negative (Negative); Color Urine Yellow (Yellow); Glucose Urine UA 3+ mg/dL (Negative); Ketones Urine Negative (Negative); Leukocyte Esterase Ur Negative LEU/UL (Negative); Nitrate Urine Negative (Negative); Non Pathogenic Casts 0-2; Protein Urine 3+ mg/dL (Negative); RBC Urine 0-2 /hpf (0-2); Specific Grav Ur 1.028 (1.001-1.035); Squamous Epithelial Cell Urine None seen /hpf (Few); Urobilinogen Urine 0.2 mg/dL (<2.0); WBC Urine 0-5 /hpf
[2022-06-28 18:24] LABS: Add Urine Microscopic? YES
[2022-06-28 18:44] LABS: Glucose Point of Care 305 mg/dl (65-105)
--- NOTE | 2022-06-28 18:46 | PC.NURSE ---
This patient, Clement Umanzor, was admitted to Medical Room 243-01. Patient/family oriented to hospital policies and general routines including ID bracelet, bed and alarms, visiting hours, pain management, procedures, bathroom and other care routines, personal items, smoking policy, room service/diet, and visiting hours. Information on how to activate the Rapid Response Team has been discussed. Patient/Family are encouraged to report perceived risks to care and to ask questions if they do not understand what they are told or what they should do.
[2022-06-28 20:33] LABS: Glucose Point of Care 223 mg/dl (65-105)
[2022-06-28] MEDS: INSULIN GLARGINE (*BKC) 100 UNITS/ML 14 UNITS SUB-Q (21:37)
[2022-06-28] MEDS: ATORVASTATIN 40 MG TABLET PO (21:39)
[2022-06-28] MEDS: hydrALAZINE HCL 25 MG TABLET PO (21:39)
[2022-06-29] VITALS (11 sets, daily range): BP systolic 138–176; BP diastolic 67–79; PULSE 66–91; RESP 16–20; TEMP 36.9–37.2; O2SAT 98–100
--- NOTE | 2022-06-29 | ECHO_ITS ---
Patient Info Name: Clement Umanzor Age: 66 years : 1955 Gender: Male Ht: 68 in Wt: 136 lbs BSA: 1.72 m2 HR: 80 bpm BP: 176 / 79 mmHg Technical Quality: Fair Exam Date: 06/29/2022 10:16 AM Exam Location: [facility] Exam Room: 243 Patient Status: Inpatient Admit Date: 06/28/2022 Staff Ordering Physician: Dasha Zuniga NP Vertical Lathe Operator: Leni Ann RDCS Attending Provider: Filipe Aaron MD Referring Physician: Nadia RODRIGUEZ; Exam Type: CA echo doppler color flow Study Info Indications - hx/o cva Complete two-dimensional, color flow and Doppler transthoracic echocardiogram is performed. Summary 1. Complete two-dimensional, color flow and Doppler transthoracic echocardiogram is performed. 2. Left ventricular chamber dimension is mildly enlarged. 3. Basal to apical inferoposterior wall and basal to lateral wall are hypokinetic. 4. Left ventricular systolic function is moderately reduced, estimated at 35-40%. 5. There is mildly increased left ventricular wall thickness. 6. The left ventricular diastolic function is grade I diastolic dysfunction. 7. E/e' 12 is mildly elevated. 8. Global longitudinal strain is abnormal at -9.5%. 9. Left atrial chamber dimension is severely enlarged. 10. There is mild aortic valve sclerosis. 11. The mitral valve has mildly calcified annulus. 12. There is trace mitral valve regurgitation. 13. There is trace tricuspid valve regurgitation. 14. No pulmonary hypertension, estimated pulmonary arterial systolic pressure is 29 mmHg. Left Ventricle E/e' 12 is mildly elevated. Global longitudinal strain is abnormal at -9.5%. Basal to apical inferoposterior wall and basal to lateral wall are hypokinetic. Left ventricular chamber dimension is mildly enlarged. Left ventricular systolic function is moderately reduced, estimated at 35-40%. There is mildly increased left ventricular wall thickness. The left ventricular diastolic function is grade I diastolic dysfunction. Right Ventricle Right ventricular systolic function is normal and with normal TAPSE 2.2 cm. Right ventricular chamber dimension is normal. Left Atria Left atrial chamber dimension is severely enlarged. Right Atria Right atrial chamber dimension is normal. Aortic Valve The aortic valve is trileaflet. There is mild aortic valve sclerosis. There is no aortic valve stenosis. There is no aortic valve regurgitation. Pulmonic Valve There is no pulmonic regurgitation. Mitral Valve The mitral valve has mildly calcified annulus. There is no mitral valve stenosis. There is trace mitral valve regurgitation. Tricuspid Valve There is trace tricuspid valve regurgitation. No pulmonary hypertension, estimated pulmonary arterial systolic pressure is 29 mmHg. Pericardium/Pleural There is no pericardial effusion. Inferior Vena Cava Normal inferior vena cava with >50% collapse upon inspiration consistent with normal right atrial pressure, 5 mmHg. Aorta The aortic root size at the sinus of Valsalva is normal. Left Ventricular Outflow Tract Name Value Normal LVOT 2D LVOT Diameter 2.1 cm LVOT Doppler
[2022-06-29 05:50] LABS: Basophils Percent Auto 0.5 % (0.2-1.2); Eosinophils Absolute Auto 0.1 K/mm3 (0-0.3); Eosinophils Percent Auto 1.5 % (0-4.4); Hematocrit 39.1 % (42.0-52.0); Hemoglobin 13.3 g/dL (14.0-18.0); Immature Granulocyte Absolute 0.02 K/mm3 (0.00-0.031); Immature Granulocyte Percent A 0.3 % (0-0.5); Lymphocytes Absolute Auto 2.68 K/mm3 (0.9-3.2); Lymphocytes Percent Auto 35.5 % (18.3-44.2); Mean Corpuscular Volume 94.2 fl (80-100); Mean Platelet Volume 11.4 fl (7.4-10.4); Monocytes Absolute Auto 0.5 K/mm3 (0.1-0.6); Monocytes Percent Auto 6.6 % (2.6-8.5); Neutrophils Absolute Auto 4.2 K/mm3 (1.3-6.7); Neutrophils Percent Auto 55.6 % (45.5-73.1); Platelet Count Result 186 k/mm3 (150-375); Red Blood Count 4.15 M/mm3 (4.6-6.20); Red Cell Distribution Width 13.2 % (11.5-14.5); White Blood Count 7.5 K/mm3 (4.5-10.0)
[2022-06-29 06:03] LABS: Lactic Acid Reflex 0.6 mmol/L (0.7-2.0)
[2022-06-29 06:29] LABS: Alanine Aminotransferase 16 U/L (6-50); Albumin Level 3.1 g/dL (3.5-5.1); Alkaline Phosphatase 90 U/L (38-126); Anion Gap 2 mmol/L (8-16); Aspartate Amino Transferase 14 U/L (17-59); Bilirubin,Total 0.5 mg/dL (0.2-1.3); Blood Urea Nitrogen 14 mg/dL (9-20); Calcium 8.1 mg/dL (8.4-10.2); Carbon Dioxide 28 mmol/L (22-30); Chloride 107 mmol/L (98-107); Estimated CRCL calculation 81 ml/min; Estimated Glomerular Filt Rate > 60; Glucose 257 mg/dL (65-110); Sodium 137 mmol/L (137-145)
[2022-06-29 07:31] LABS: Hemoglobin A1C 12.3 % (<5.7)
[2022-06-29 07:59] LABS: Glucose Point of Care 197 mg/dl (65-105)
[2022-06-29] MEDS: ASPIRIN 81 MG ENTERIC TABLET PO (08:32)
[2022-06-29] MEDS: NIFEdipine 30 MG TAB.ER.24 60 MG PO (08:32)
[2022-06-29] MEDS: hydrALAZINE HCL 25 MG TABLET PO ×3 (08:32→17:14)
[2022-06-29] MEDS: CLOPIDOGREL BISULFATE 75 MG TABLET PO (08:32)
[2022-06-29] MEDS: LOSARTAN POTASSIUM 100 MG TABLET PO (08:32)
[2022-06-29] MEDS: POTASSIUM CHLORIDE 20 MEQ PACKET (FOR LIQUID) 60 MEQ PO (08:33)
--- NOTE | 2022-06-29 10:04 | WPDNEURCNPN ---
Assessment and Plan Assessment and plan (1) Uncontrolled diabetes mellitus: Status: Acute (2) Uncontrolled hypertension: Code(s): I10 - Essential (primary) hypertension Status: Acute (3) Dysarthria due to recent cerebrovascular accident (CVA): Code(s): I69.322 - Dysarthria following cerebral infarction Status: Acute (4) CVA (cerebral vascular accident): Code(s): I63.9 - Cerebral infarction, unspecified Status: Acute Plan Clement Umanzor is a 66 year old male with a history of diabetes, hypertension, and previous strokes presenting for worsening dysarthria. Suspect stroke recrudescence considering BP and blood sugar on arrival vs new stroke. - Recommend MRI brain w/o contrast to rule out new infarct Consult date: 06/29/22 Reason for consult: Dysarthria HPI: Clement Umanzor is a 66 year old male with a history of diabetes, hypertension, and previous strokes presenting for worsening dysarthria. Patient was brought in by family due to worsening dysarthria. Patient had been refusing to take any of his medications. In the Emergency Department, his blood pressure was 204/116. His blood sugar was 492. He was not in DKA. His CT head showed old infarcts involving the right cerebellum, left occipital lobe, bilateral thalami, bilateral basal ganglia, bilateral parietal lobes, right insula, and bilateral frontal lobes. He was admitted for further work-up. His blood pressure and blood sugar are close to normal now. His medication list includes aspirin, Plavix, and Lipitor 40mg. Patient feels that his speech is better compared to how it was when he presented to the ED. He was very tearful during conversation and unhappy with his current situation -- especially not being able to work anymore. He lives with his daughter and grandson. He denies any abuse. He denies any suicidal ideation. He is not interested in taking his medications and has no plans to discontinue smoking. Review of Systems Constitutional: Constitutional: Reports no additional constitutional complaints Eyes: Eyes: Reports no additional eye complaints ENT: Reports system reviewed and no additional complaints, except as documented Cardiovascular: Cardiovascular: Reports chest pain Respiratory: Respiratory: Reports no additional respiratory complaints Gastrointestinal: Gastrointestinal: Reports no additional gastrointestinal complaints Genitourinary: Genitourinary: Reports no additional male genitourinary complaints Musculoskeletal: Musculoskeletal: Reports back pain Integumentary/Breasts: Skin/Breast: Reports system reviewed and no additional complaints, except as docu Neurologic: Reports as per HPI Psychiatric: Psychiatric: Reports depression PMFSH Past Medical History Medical History Acute neck sprain Atherosclerosis of lime coronary artery of lime heart without angina pectoris Benign prostatic hyperplasia without lower urinary tract symptoms Cerebrovascular accident 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
[2022-06-29 12:34] LABS: Glucose Point of Care 327 mg/dl (65-105)
[2022-06-29] MEDS: INSULIN ASPART (*BKC) 100 UNITS/ML SUB-Q ×2 (12:34→17:14)
[2022-06-29 12:35] LABS: Glucose Point of Care 339 mg/dl (65-105)
--- NOTE | 2022-06-29 13:25 | PC.NURSE ---
On 06/29/22, the student, [Maxim Igancio], provided care and completed [facility] documentation on this patient. I have reviewed the student's documentation and agree with the findings.
--- NOTE | 2022-06-29 14:19 | PC.NURSE ---
On 06/29/22, the student, [Santiago Ling], provided care and completed [facility] documentation on this patient. I have reviewed the student's documentation and agree with the findings.
--- NOTE | 2022-06-29 15:18 | PM.IMPN ---
Progress Note: A&P Assessment and Plan (1) Cerebrovascular accident: Code(s): I63.9 - Cerebral infarction, unspecified Status: Acute Assessment and Plan: The patient has a history having multiple CVAs continue with an aspirin Plavix and atorvastatin It was felt that the patient was somewhat confused today and possible slurring of the speech. Dr. Pedersen has been consulted MRI of the brain ordered Echocardiogram revealed EF 35-40%, grade 1 diastolic dysfunction, severely enlarged left atria, valvular disease, and no pulmonary hypertension. Echo does appear worsened from echo conducted in March of 2021 PT OT Evaluation The patient stated that he would go to rehab facility. (2) Uncontrolled diabetes mellitus: Status: Acute Assessment and Plan: Accu-Cheks AC and HS with high-dose sliding scale. Continue with Lantus at night. A1c 12.3 -patient states that he discontinued his medications. I discussed with him the importance continuing his diabetic medications he had not seem interested in hearing this. Increase patient's Lantus to 20 units q.p.m. (3) Uncontrolled hypertension: Code(s): I10 - Essential (primary) hypertension Status: Acute Assessment and Plan: Patient has p.r.n. hydralazine with parameters Continue with losartan and nifedipine The patient is on hydralazine scheduled (4) CAD (coronary artery disease), [place] coronary artery: Code(s): I25.10 - Atherosclerotic heart disease of [place] coronary artery without angina pectoris Status: Acute Assessment and Plan: Continue with aspirin and atorvastatin Subjective Date/time seen: 06/29/22 15:18 Interval history: Patient sitting up in the chair intense pain upon patient no new complaints this time. Patient did reveal knee has discontinued all of his medications and he does not seem interested in restarting any of them. Patient does have slurred speech when communicating although appears to not any difficulty finding words or facial droop. Review of Systems Review of Systems: All systems reviewed & are unremarkable except as noted in HPI and below Exam Narrative: GENERAL: Comfortable, no acute distress HENMT: moist mucous membranes EYES: EOM intact b/l NECK: no lymphadenopathy RESPIRATORY: clear to auscultation CARDIO: RRR GI: soft, nontender, bowel sounds present SKIN: no rashes EXTREMITIES: no edema, redness or tenderness Objective Data Vital Signs Vital Signs: Vital Signs - 24 hr 06/28/22 16:27 06/28/22 16:20 06/28/22 16:22 Temperature 97.6 F Pulse Rate 82 81 81 Respiratory Rate 14 13 13 Blood Pressure 210/101 H 222/92 H Pulse Oximetry 100 Oxygen Delivery Room Air 06/28/22 16:30 06/28/22 16:31 06/28/22 16:45 Temperature Pulse Rate 81 78 82 Respiratory Rate 13 15 14 Blood Pressure 210/101 H Pulse Oximetry 99 99 Oxygen Delivery 06/28/22 16:46 06/28/22 17:00 06/28/22 17:01 Temperature Pulse Rate 83 75 76 Respiratory Rate 16 13 17 Blood Pressure 200/99 H 197/96 H Pulse Oximetry 99 Oxygen Delivery 06/28/22 17:15 06/28/22 17:16 06/28/22 17:30 Temperature Pulse Rate 80 79 75 Respiratory Rate 19 21 H 14 Blood Pressure 204/116 H 200/107 H Pulse Oximetry 99 Oxygen Delivery 06/28/22 17:31 06/28/22 18:07 06/28/22 18:39 Temperature 97.9 F Pulse Rate 86 80 74 Respiratory Rate 17 16 18 Blood Pressure 190/87 H 191/83 H Pulse Oximetry 100 Oxygen Delivery 06/28/22 19:52 06/28/22 20:00 06/29/22 00:07 Temperature 98.0 F 98.4 F Pulse Rate 77 79 Respiratory Rate 22 H 20 Blood Pressure 179/87 H 158/70 H Pulse Oximetry 100 99 Oxygen Delivery Room Air 06/28/22 20:00 06/29/22 00:00 06/29/22 04:05 Temperature 99.0 F Pulse Rate 77 83 77 Respiratory Rate 20 Blood Pressure 176/79 H Pulse Oximetry 98 Oxygen Delivery 06/29/22
[2022-06-29 17:13] LABS: Glucose Point of Care 295 mg/dl (65-105)
[2022-06-29] MEDS: INSULIN GLARGINE (*BKC) 100 UNITS/ML 20 UNITS SUB-Q (17:16)
[2022-06-29] MEDS: ATORVASTATIN 40 MG TABLET PO (20:13)
[2022-06-29 20:42] LABS: Glucose Point of Care 286 mg/dl (65-105)
[2022-06-30] VITALS (7 sets, daily range): BP systolic 136–165; BP diastolic 61–75; PULSE 66–81; RESP 14–18; TEMP 36.4–36.8; O2SAT 97–100
[2022-06-30 06:05] LABS: Basophils Percent Auto 0.5 % (0.2-1.2); Eosinophils Absolute Auto 0.1 K/mm3 (0-0.3); Eosinophils Percent Auto 1.6 % (0-4.4); Hematocrit 39.2 % (42.0-52.0); Hemoglobin 13.3 g/dL (14.0-18.0); Immature Granulocyte Absolute 0.02 K/mm3 (0.00-0.031); Immature Granulocyte Percent A 0.3 % (0-0.5); Lymphocytes Absolute Auto 2.52 K/mm3 (0.9-3.2); Lymphocytes Percent Auto 34.5 % (18.3-44.2); Mean Corpuscular HGB Conc 33.9 g/dl (32-36); Mean Corpuscular Hemoglobin 32.2 pg (26-34); Mean Corpuscular Volume 94.9 fl (80-100); Mean Platelet Volume 10.8 fl (7.4-10.4); Monocytes Absolute Auto 0.5 K/mm3 (0.1-0.6); Neutrophils Absolute Auto 4.1 K/mm3 (1.3-6.7); Neutrophils Percent Auto 56.1 % (45.5-73.1); Platelet Count Result 204 k/mm3 (150-375); Red Blood Count 4.13 M/mm3 (4.6-6.20); Red Cell Distribution Width 13.2 % (11.5-14.5); White Blood Count 7.3 K/mm3 (4.5-10.0)
[2022-06-30 06:21] LABS: Alanine Aminotransferase 14 U/L (6-50); Albumin Level 3.1 g/dL (3.5-5.1); Alkaline Phosphatase 86 U/L (38-126); Anion Gap 0 mmol/L (8-16); Aspartate Amino Transferase 18 U/L (17-59); Bilirubin,Total 0.5 mg/dL (0.2-1.3); Blood Urea Nitrogen 16 mg/dL (9-20); Calcium 8.5 mg/dL (8.4-10.2); Carbon Dioxide 28 mmol/L (22-30); Chloride 106 mmol/L (98-107); Estimated CRCL calculation 71 ml/min; Estimated Glomerular Filt Rate > 60; Glucose 106 mg/dL (65-110); Potassium 3.2 mmol/L (3.4-5.0); Sodium 134 mmol/L (137-145)
[2022-06-30 08:18] LABS: Glucose Point of Care 102 mg/dl (65-105)
[2022-06-30] MEDS: LOSARTAN POTASSIUM 100 MG TABLET PO (09:57)
[2022-06-30] MEDS: NIFEdipine 30 MG TAB.ER.24 60 MG PO (09:57)
[2022-06-30] MEDS: POTASSIUM CHLORIDE 20 MEQ PACKET (FOR LIQUID) 40 MEQ PO (09:57)
[2022-06-30] MEDS: ASPIRIN 81 MG ENTERIC TABLET PO (09:57)
[2022-06-30] MEDS: CLOPIDOGREL BISULFATE 75 MG TABLET PO (09:57)
[2022-06-30] MEDS: hydrALAZINE HCL 25 MG TABLET PO ×2 (10:01→12:31)
[2022-06-30 12:12] LABS: Glucose Point of Care 350 mg/dl (65-105)
[2022-06-30] MEDS: INSULIN ASPART (*BKC) 100 UNITS/ML SUB-Q (12:28)
[2022-06-30] MEDS: PANTOPRAZOLE 40 MG TABLET PO (12:29)
--- NOTE | 2022-06-30 13:34 | PM.DS ---
DS: Admitting Diagnosis Discharge Date 06/30/22 Admitting Diagnosis worsening dysarthria DS: Discharge Diagnosis Discharge Diagnosis (1) Cerebrovascular accident: Code(s): I63.9 - Cerebral infarction, unspecified Status: Acute Assessment and Plan: The patient has a history having multiple CVAs continue with an aspirin Plavix and atorvastatin It was felt that the patient was somewhat confused today and possible slurring of the speech. Dr. Pedersen has been consulted MRI of the brain ordered but unable to be performed due to patient's stent placement. Records were not be able to be obtained in order for MRI to be performed. Echocardiogram revealed EF 35-40%, grade 1 diastolic dysfunction, severely enlarged left atria, valvular disease, and no pulmonary hypertension. Echo does appear worsened from echo conducted in March of 2021 PT OT Evaluation The patient Going to rehab facility at discharge. (2) Uncontrolled diabetes mellitus: Status: Acute Assessment and Plan: Accu-Cheks AC and HS with high-dose sliding scale. Continue with Lantus at night. A1c 12.3 -patient states that he discontinued his medications. I discussed with him the importance continuing his diabetic medications he had not seem interested in hearing this. Increase patient's Lantus to 20 units q.p.m. (3) Uncontrolled hypertension: Code(s): I10 - Essential (primary) hypertension Status: Acute Assessment and Plan: Patient has p.r.n. hydralazine with parameters Continue with losartan and nifedipine The patient is on hydralazine scheduled (4) CAD (coronary artery disease), [place] coronary artery: Code(s): I25.10 - Atherosclerotic heart disease of [place] coronary artery without angina pectoris Status: Acute Assessment and Plan: Continue with aspirin and atorvastatin DS: Summary Hospital Course Reason for hospitalization: Worsening dysarthria Hospital Course: This is a 66-year-old male patient with history of diabetes, hypertension and previous CVAs presenting to the ED on 06/28/2022 with worsening dysarthria. patient ready has dysarthric due to previous CVAs but states that had worsened at the time of presentation. At the time of questioning patient stated that he had discontinue all of his home medications. upon further questioning patient was unable to state why he discontinued all of his home medications and that he wishes over taking the medicine. Upon presentation the ED his blood pressure was 204/116 and his blood sugar was 492. Patient was given hydralazine and NovoLog in the ED. chest x-ray with no acute cardiopulmonary process. Head CT revealed multiple old brain infarcts. Neurology consulted. Echocardiogram revealed EF of 35-40%, grade 1 diastolic dysfunction, severely enlarged left atria and valvular disease. This echo was worsened from echo in March of 2021. Ideally patient would have undergone MRI but he did have stent placed in [place] and we were unable to obtain records this patient was unable to undergo MRI. After talking to Neurology they believe that patient's presentation was most likely due to his elevated blood sugars and hypertension. She has low suspicion for acute stroke. Patient's dysarthria improved and he is no longer having any symptoms like he did the time of presentation. After discussion with Neurology they are in agreement that patient be discharged into rehab. Time Spent with Patient Time attestation: Total time spent providing and/or coordinating discharge services: Exam Narrative: GENERAL: Comfortable, no acute distress HENMT: moist mucous membranes EYES: EOM intact b/l NECK: no lymphadenopathy RESPIRATORY: clear to auscultation CARDIO: RRR GI: soft, nontender, bowel sounds present SKIN: no rashes EXTREMITIES: no edema, redness or tenderness DS: Data Data Completed and Pending Lab
[2022-06-30 16:17] LABS: EDCOVIDSCREEN Negative (Negative)
== END 2022-06-30 16:40 ==
LOC: ANHED 17:16 → ANH2MED 17:46
PROVIDERS: Emergency Medicine; Internal Medicine Critical Care Medicine; Nurse Practitioner; Admitting Provider Internal Medicine; Emergency Provider Emergency Medicine; PCP Family Medicine; Visit Provider Internal Medicine
DX: I63.9 Cerebral infarction, unspecified (principal); E11.65 Type 2 diabetes mellitus with hyperglycemia; I11.9 Hypertensive heart disease without heart failure; I25.10 Atherosclerotic heart disease of native coronary artery without angina pectoris; N40.0 Benign prostatic hyperplasia without lower urinary tract symptoms; E11.51 Type 2 diabetes mellitus with diabetic peripheral angiopathy without gangrene; H34.212 Partial retinal artery occlusion, left eye; G47.10 Hypersomnia, unspecified; E11.319 Type 2 diabetes mellitus with unspecified diabetic retinopathy without macular edema; Z20.822 Contact with and (suspected) exposure to COVID-19; R94.31 Abnormal electrocardiogram [ECG] [EKG]; E78.5 Hyperlipidemia, unspecified; I34.81 Nonrheumatic mitral (valve) annulus calcification; I35.8 Other nonrheumatic aortic valve disorders; I65.02 Occlusion and stenosis of left vertebral artery; R29.701 NIHSS score 1; R90.82 White matter disease, unspecified; Z66 Do not resuscitate; F17.210 Nicotine dependence, cigarettes, uncomplicated; Z79.82 Long term (current) use of aspirin; Z79.02 Long term (current) use of antithrombotics/antiplatelets; Z79.4 Long term (current) use of insulin; Z79.899 Other long term (current) drug therapy
CPT/HCPCS: 36415; 70450; 71045; 73610; 80053; 81001; 82948; 83036; 83605; 83735; 84443; 84484; 85025; 85610; 85730; 87426; 93005; 93306; 96361; 96374; 97161; 97165; 97530; 99285; A9270; C9803; G0378; J0360; J1815; J7120